=== PATIENT | female | born 1945 | race American Indian/Alaskan Native ===

== ENCOUNTER 2017-04-26 10:14 | Outpatient (CLI) | payer MEDICARE ==
--- NOTE | 2017-04-27 08:43 | Mammography Report ---
BONE DEXA:04/26/17 10:30:00 CLINICAL: Postmenopausal. No comparison. TECHNIQUE: Two site bone DEXA performed on an Hologic scanner. FINDINGS: The average BMD of the lumbar spine L1-L4 is 0.961g/cm squared with a T-score of -0.8 and a Z-score of +0.6. The average BMD of the left hip is 0.878g/cm squared with a T-score of -0.5 and a Z-score of 0.2. IMPRESSION: 1. WHO classification: Normal with average fracture risk based on lumbar spine measurements. 2. WHO classification: Osteopenia with increased fracture risk based on left hip measurements. 3. The FRAX 10 year fracture probability for a major osteoporotic fracture is 4.3%. 4. The FRAX 10 year fracture probability for hip fracture is 0.6%. Note: FRAX version 3.01. Fracture probability calculated for an untreated patient. Fracture probability may be lower if the patient has received treatment. RECOMMENDATION: Clinical correlation and routine screening. DEFINITIONS: BMD = Bone Mineral Density T-score = BMD related to mean peak bone mass of young adult (mean expressed in Standard Deviation) Z-score = Age matched BMD expressed in SD World Health Organization (WHO) Diagnostic Criteria Normal T-score > -1 SD Osteopenia T-score between -1 and -2.4 SD Osteoporosis T-score -2.5 SD or below NOTE: BMD is not the only risk factor for fracture; also consider factors such as the patient's age, risk of falling, previous osteoporotic fracture, family history of osteoporotic fractures, current smoker, and low body weight. All treatment decisions require clinical judgment and consideration of individual patient factors, including patient preferences, comorbidities, previous drug use and risk factors not captured in the FRAX model (e.g. frailty, falls, vitamin D deficiency, increased bone turnover, interval significant decline in BMD). Fracture probability is calculated for an untreated patient. Fracture probability may be lower if the patient has received treatment. Z-scores are not calculated if >80 years of age.
--- NOTE | 2017-04-27 16:11 | Mammography Report ---
BILATERAL DIGITAL SCREENING MAMMOGRAM with CAD: 04/26/17 10:14:00 CLINICAL: Routine screening. COMPARISON:04/11/16 and 12/10/14 FINDINGS: The breasts are heterogeneously dense, which may obscure small masses. No mass, architectural distortion or suspicious calcifications. IMPRESSION: No mammographic evidence of malignancy. BI-RADS CATEGORY: 1 - - Negative RECOMMENDATION: Routine mammographic screening in one year. COMMENT: Patient follow-up letters are generated by our [employer] application.
== END 2017-04-26 10:15 | disposition home or self-care (01) ==
LOC: MAMMO 10:14
PROVIDERS: ATTEND Internal Medicine
DX: Z12.31 Encounter for screening mammogram for malignant neoplasm of breast (principal); M85.88 Other specified disorders of bone density and structure, other site; Z78.0 Asymptomatic menopausal state
CPT/HCPCS: 77080; G0202; 77067

== ENCOUNTER 2018-05-21 10:12 | Outpatient (CLI) | payer MEDICARE ==
--- NOTE | 2018-05-21 16:36 | Mammography Report ---
BILATERAL DIGITAL SCREENING MAMMOGRAM with CAD: 05/21/18 10:12:00 CLINICAL: Routine screening. COMPARISON:04/26/17 FINDINGS: The breasts are heterogeneously dense, which may obscure small masses. Left inner parenchymal asymmetry requires additional imaging.No architectural distortion or suspicious calcifications.The right breast is negative. IMPRESSION: Left asymmetry requiring further workup. BI-RADS CATEGORY: 0 -- Additional Imaging Evaluation Required RECOMMENDATION: Recall for left LM , rolled CC, and spot compression CC views and left breast ultrasound if needed. ACR BI-RADS MAMMOGRAPHIC CODES: 0 = Needs additional imaging evaluation; 1 = Negative; 2 = Benign; 3 = Probably benign; 4 = Suspicious; 5 = Malignant; 6 = Known biopsy-proven malignancy COMMENT: 1. Dense breast tissue, i.e., adenosis, fibrocystic changes, etc., may obscure an underlying neoplasm. 2. Approximately 10% of cancers are not detected with mammography. 3. A negative mammography report should not delay biopsy if a clinically suspicious mass is present. COMMENT: Patient follow-up letters are generated via our [employer] application.
== END 2018-05-21 10:13 | disposition home or self-care (01) ==
LOC: MAMMO 10:12
PROVIDERS: ATTEND Internal Medicine
DX: Z12.31 Encounter for screening mammogram for malignant neoplasm of breast (principal)
CPT/HCPCS: 77067

== ENCOUNTER 2018-07-12 10:56 | Outpatient (CLI) | payer MEDICARE ==
--- NOTE | 2018-07-12 12:15 | Mammography Report ---
LEFT DIGITAL DIAGNOSTIC MAMMOGRAM : 07/12/18 10:56:00 CLINICAL: Recalled for asymmetry. COMPARISON:05/21/18 screening FINDINGS: Additional mammographic views were performed and are negative. IMPRESSION: Negative Mammogram. BI-RADS CATEGORY: 1 -- Negative RECOMMENDATION: Routine mammographic screening in one year. ACR BI-RADS MAMMOGRAPHIC CODES: 0 = Needs additional imaging evaluation; 1 = Negative; 2 = Benign; 3 = Probably benign; 4 = Suspicious; 5 = Malignant; 6 = Known biopsy-proven malignancy COMMENT: 1. Dense breast tissue, i.e., adenosis, fibrocystic changes, etc., may obscure an underlying neoplasm. 2. Approximately 10% of cancers are not detected with mammography. 3. A negative mammography report should not delay biopsy if a clinically suspicious mass is present. COMMENT: Patient follow-up letters are generated via our [employer] application.
== END 2018-07-12 10:57 | disposition home or self-care (01) ==
LOC: MAMMO 10:56
PROVIDERS: ATTEND Physician Assistant Medical
DX: R92.2 Inconclusive mammogram (principal)

== ENCOUNTER 2022-05-03 03:28 | Observation (INO) | payer MEDICARE ==
[2022-05-03 05:46] LABS: Basophils % (Auto) 0.7 % (0.0-1.8); Eosinophils # (Auto) 0.1 K/mm3 (0.0-0.4); Eosinophils % (Auto) 1.2 % (0.0-4.3); Hematocrit 39.8 % (30.3-42.9); Hemoglobin 13.3 gm/dl (10.1-14.3); Lymphocytes # (Auto) 1.2 K/mm3 (1.2-5.4); Lymphocytes % (Auto) 28.8 % (13.4-35.0); Mean Corpuscular HGB Conc 33 % (30-34); Mean Corpuscular Volume 96 fl (79-97); Monocytes # (Auto) 0.3 K/mm3 (0.0-0.8); Monocytes % (Auto) 7.5 % (0.0-7.3); Platelet Count 261 K/mm3 (140-440); Red Blood Count 4.14 M/mm3 (3.65-5.03); Red Cell Distribution Width 12.6 % (13.2-15.2)
[2022-05-03 05:55] LABS: INR 0.86 (0.87-1.13); Partial Thromboplastin Time 24.8 Sec. (24.2-36.6)
[2022-05-03 06:14] LABS: Alanine Aminotransferase 9 units/L (7-56); Albumin 4.2 g/dL (3.9-5); Blood Urea Nitrogen 5 mg/dL (7-17); Calcium 9.4 mg/dL (8.4-10.2); Hemolysis Index 33
[2022-05-03 06:16] LABS: BUN/Creatinine Ratio 8
[2022-05-03] MEDS ORDERED: THIAMINE 100 MG, FOLIC ACID 1 MG, MULTIPLE VITAMIN INJ, ADULT 10 ML in SODIUM CHLORIDE ... IV ONE (06:33)
--- NOTE | 2022-05-03 06:38 | Emergency Department Report ---
ED Syncope HPI - General Chief Complaint: Syncope Stated Complaint: SYNCOPE/ANXIETY Time Seen by Provider: 05/03/22 06:09 Source: patient, family Exam Limitations: no limitations - History of Present Illness Initial Comments: 76-year-old female past medical history of hypertension, smoker, elevated cholesterol, hypoglycemic episode presents to the hospital complaining of syncop al episode today. Patient admits to drinking 1 bottle of Heineken and half a glass of wine. She was watching TV and felt lightheaded. She entered her granddaughters room, became diaphoretic, and slid down the bed and passed out on the floor for several seconds. She woke up speaking slowly and then "spoke another language" therefore EMS was notified. Patient denies any preceding or current headache, chest pain, nausea, vomiting, abdominal pain focal weakness, or numbness. Patient reports decreased p.o. intake. She denies history of alcohol withdrawal tremors or seizures but does drink alcohol daily. patient has bruising to her left leg from unknown injury. Precipitating Factors: Positive: lightheadedness Context: sitting Loss of Consciousness: brief (seconds) Current Symptoms: back to normal - Related Data Allergies/Adverse Reactions: Allergies No Known Allergies Allergy (Verified 05/03/22 06:35) ED Review of Systems ROS: Stated complaint: SYNCOPE/ANXIETY Other details as noted in HPI Comment: All other systems reviewed and negative ED Physical Exam - General Limitations: Altered Mental Status - Other Other exam information: General: No acute distress Head: Atraumatic Eyes: normal appearance ENT: Moist mucous membranes Neck: Normal appearance, no midline tenderness Chest: Clear to auscultation bilaterally CV: Regular rate and rhythm Abdomen: Soft, normal bowel sounds, nontender, nondistended, no rebound or guarding Back: Normal inspection Extremity: Ecchymosis to left thigh and lower leg, full range of motion of bilateral upper and lower extremities without pain Neuro: Alert O x 3, no facial asymmetry, speech clear, no gross motor sensory deficit Psych: Appropriate behavior Skin: Ecchymosis noted to left thigh and lower leg ED Course Vital Signs 05/03/22 05/03/22 03:49 07:39 Temperature 97.8 F 98.0 F Pulse Rate 71 70 Respiratory 16 20 Rate Blood Pressure 141/78 127/67 [Right] O2 Sat by Pulse 99 100 Oximetry ED Medical Decision Making - Lab Data Result diagrams: 05/03/22 05:31 05/03/22 05:31 - EKG Data -: EKG Interpreted by [facility] EKG shows normal: sinus rhythm, ST-T waves (Biphasic anterior T wave, inferior T wave inversion) Rate: normal (75) - EKG Data When compared to previous EKG there are: previous EKG unavailable - Radiology Data Radiology results: report reviewed XR chest 1V ap INDICATION / CLINICAL INFORMATION: syncope. COMPARISON: None available. FINDINGS: SUPPORT DEVICES: None. HEART /PULMONARY VASCULATURE: Heart is enlarged. No significant pulmonary vasculature congestion. LUNGS / PLEURA: Lungs are hyperexpanded but appear clear of focal infiltrate. No pneumothorax. ADDITIONAL FINDINGS: No significant additional findings. IMPRESSION: 1. No acute findings. CT HEAD WITHOUT CONTRAST INDICATION / CLINICAL INFORMATION: sycnope, etoh. TECHNIQUE: All CT scans at this location are performed using CT dose reduction for ALARA by means of automated exposure control. COMPARISON: None available. FINDINGS: CEREBRAL/CEREBELLAR PARENCHYMA: Mild white matter hypodensities likely representing microangiopathy. No acute territorial infarct. Mild generalized cerebral and cerebellar atrophy. HEMORRHAGE: No acute intra-axial hemorrhage or extra-axial fluid collection. MASS: No mass or mass effect. VENTRICULAR SYSTEM: Normal in size and morphology for the patient's age. ORBITS: Normal as visualized. SOFT TISSUES/SKULL: Small benign-appearing left frontal vertex scalp lesion that most likely represents an epidermal inclusion cyst (series 2, image 23) measuring 9 mm in diameter. PARANASAL SINUSES/MASTOID AIR CELLS: Normal as visualized. IMPRESSION: 1. No acute intracranial abnormality. CT CERVICAL SPINE WITHOUT CONTRAST INDICATION / CLINICAL INFORMATION: sycnope, etoh. TECHNIQUE: Axial CT images were obtained through the cervical spine. Sagittal and coronal reformatted images were produced. All CT scans at this location are performed using CT dose reduction for ALARA by means of automated exposure control. COMPARISON: None available. FINDINGS: VERTEBRAE/ALIGNMENT: Normal vertebral body height and alignment without acute fracture or posttraumatic subluxation. CRANIOCERVICAL JUNCTION:No significant abnormality. DISC SPACES/FACETS: Asymmetric multilevel hypertrophic facet arthropathy on the left. This results in trace anterolisthesis of C4 on C5 by 2 mm. Disc height loss and broad-based disc osteophyte complexes at C5-C6 and C6-C7, most severe at C6-C7. Advanced disc height loss is also present at C7- T1. Moderate bilateral neural foraminal stenosis at C6-C7 and on the right at C5-C6. SPINAL CANAL: No evidence for significant spinal stenosis within limitations of noncontrast CT technique. PARASPINAL SOFT TISSUES: No significant abnormality. LUNG APICES/ADDITIONAL FINDINGS: Mild biapical pleural scarring. IMPRESSION: 1. No fracture or other acute process. 2. Moderate lower cervical degenerative spondylosis, as detailed above, and mild grade 1 anterolisthesis of C4 on C5 secondary to severe left facet arthropathy. - Medical Decision Making 76-year-old female presents to the hospital syncopal episode. Positive EtOH intake reported.. Labs revealed mild elevation in alcohol level with elevated sodium and chloride to suggest dehydration. Given patient has bruising to leg I suspect frequent falls. CT head and cervical spine unremarkable. Chest x-ray unremarkable. EKG shows anterior lateral T wave inversions with a normal troponin. Patient denies chest pain or shortness of breath. Patient will be admitted to the hospital service. Dr. Rodriguez requests admission to Dr. Sarkar Critical Care Time: No Critical care attestation.: If time is entered above; I have spent that time in minutes in the direct care of this critically ill patient, excluding procedure time. ED Disposition Clinical Impression: Syncope, Daily consumption of alcohol, Abnormal EKG, Dehydration Disposition: ADMITTED INPATIENT Is pt being admited?: Yes Does the pt Need Aspirin: No Condition: Stable Instructions: Syncope (ED) Time of Disposition: 08:46
--- NOTE | 2022-05-03 07:02 | XRay Report ---
XR chest 1V ap INDICATION / CLINICAL INFORMATION: syncope. COMPARISON: None available. FINDINGS: SUPPORT DEVICES: None. HEART /PULMONARY VASCULATURE: Heart is enlarged. No significant pulmonary vasculature congestion. LUNGS / PLEURA: Lungs are hyperexpanded but appear clear of focal infiltrate. No pneumothorax. ADDITIONAL FINDINGS: No significant additional findings. IMPRESSION: 1. No acute findings. Signer Name: Toni Vang MD Signed: 05/03/2022 6:58 AM Workstation Name: [id number]
--- NOTE | 2022-05-03 08:33 | Cat Scan Report ---
CT HEAD WITHOUT CONTRAST INDICATION / CLINICAL INFORMATION: sycnope, etoh. TECHNIQUE: All CT scans at this location are performed using CT dose reduction for ALARA by means of automated exposure control. COMPARISON: None available. FINDINGS: CEREBRAL/CEREBELLAR PARENCHYMA: Mild white matter hypodensities likely representing microangiopathy. No acute territorial infarct. Mild generalized cerebral and cerebellar atrophy. HEMORRHAGE: No acute intra-axial hemorrhage or extra-axial fluid collection. MASS: No mass or mass effect. VENTRICULAR SYSTEM: Normal in size and morphology for the patient's age. ORBITS: Normal as visualized. SOFT TISSUES/SKULL: Small benign-appearing left frontal vertex scalp lesion that most likely represen ts an epidermal inclusion cyst (series 2, image 23) measuring 9 mm in diameter. PARANASAL SINUSES/MASTOID AIR CELLS: Normal as visualized. IMPRESSION: 1. No acute intracranial abnormality. Signer Name: Bernardo Cole MD Signed: 05/03/2022 8:29 AM Workstation Name: [email or web address]
--- NOTE | 2022-05-03 08:37 | Cat Scan Report ---
CT CERVICAL SPINE WITHOUT CONTRAST INDICATION / CLINICAL INFORMATION: symary, etoh. TECHNIQUE: Axial CT images were obtained through the cervical spine. Sagittal and coronal reformatted images were produced. All CT scans at this location are performed using CT dose reduction for ALARA by means of automated exposure control. COMPARISON: None available. FINDINGS: VERTEBRAE/ALIGNMENT: Normal vertebral body height and alignment without acute fracture or posttraumat ic subluxation. CRANIOCERVICAL JUNCTION:No significant abnormality. DISC SPACES/FACETS: Asymmetric multilevel hypertrophic facet arthropathy on the left. This results in trace anterolisthesis of C4 on C5 by 2 mm. Disc height loss and broad-based disc osteophyte complexe s at C5-C6 and C6-C7, most severe at C6-C7. Advanced disc height loss is also present at C7-T1. Moder ate bilateral neural foraminal stenosis at C6-C7 and on the right at C5-C6. SPINAL CANAL: No evidence for significant spinal stenosis within limitations of noncontrast CT techni que. PARASPINAL SOFT TISSUES: No significant abnormality. LUNG APICES/ADDITIONAL FINDINGS: Mild biapical pleural scarring. IMPRESSION: 1. No fracture or other acute process. 2. Moderate lower cervical degenerative spondylosis, as detailed above, and mild grade 1 anterolisthe sis of C4 on C5 secondary to severe left facet arthropathy. Signer Name: Bernardo Cole MD Signed: 05/03/2022 8:33 AM Workstation Name: [email or web address]
[2022-05-03] MEDS ORDERED: ACETAMINOPHEN 325 MG TAB PO PRN (08:47)
[2022-05-03] MEDS ORDERED: MORPHINE 2 MG/1 ML INJ IV PRN ×2 (08:47→11:00)
[2022-05-03] MEDS ORDERED: ONDANSETRON 4 MG/2 ML INJ IV PRN (08:47)
[2022-05-03] MEDS ORDERED: MORPHINE 4 MG/1 ML INJ IV PRN (10:48)
[2022-05-03] MEDS ORDERED: oxyCODONE /ACETAMINOPHEN 5-325MG TAB PO PRN (11:00)
--- NOTE | 2022-05-03 11:19 | Electrocardiograph Report ---
[facility] Test Date: 2022-05-03 Test Time: 06:17:15 Pat Name: ROBERT KAY Department: Room: A451 Gender: F Care Giver: AGUSTO : 1945 Requested By: DOTTY LIGHT Order Number: [id number] Reading MD: Macario Mendoza Measurements Intervals [place] Rate: 75 P: 38 TX: 174 QRS: -50 QRSD: 103 T: -38 QT: 431 QTc: 483 Interpretive Statements Sinus rhythm LAD, consider left anterior fascicular block Left ventricular hypertrophy Abnormal T, consider ischemia, diffuse leads No previous ECG available for comparison Electronically Signed On 05-03-2022 11:19:44 EDT by Macario Mendoza
[2022-05-03 11:33] LABS: Amphetamine Screen,Urine Negative; Benzodiazepines Screen,Urine Negative; Cannabinoid Screen,Urine Negative; Cocaine Screen,Urine Negative; Methadone Screen,Urine Negative; Opiate Screen,Urine Negative
--- NOTE | 2022-05-03 12:30 | History and Physical Report ---
History of Present Illness Date of examination: 05/03/22 Date of admission: 05/03/22 08:47 Chief complaint: Syncope History of present illness: Patient is a 76-year-old female past medical history of hypertension, tobacco dependence, hyperlipidemia, and episodes of hypoglycemia who presented to the ED after becoming diaphoretic and syncopized any at home with family. The patient was consuming alcohol with her family and afterwards she became diaphoretic upon walking into the room. The patient describes sitting on the bed and sliding off of it to the ground. Patient states that her family described her as "speaking another language" and being confused; this prompted her being transported to the ED. On presentation to the ED, the patient was found to be hemodynamically stable and saturating 100% on room air. Patient's labs were remarkable for hyponatremia with a sodium of 148. Patient had unremarkable troponin, chest x- ray, CT head without contrast, and CT cervical spine in the setting of ground- level fall. Patient is being admitted for syncope work-up. Past History Past Medical History: hypertension, hyperlipidemia (Tobacco dependence,), other (#Tobacco dependence#Tobacco/Smoking cessation counseling- Counseled patient about the importance of smoking cessation and the possible sequelae as a result of continued tobacco consumption. The patient expresses understanding. -Time: + 15 mins) Past Surgical History: No surgical history Social history: lives with family, full code Family history: no significant family history Medications and Allergies Allergies Allergy/AdvReac Type Severity Reaction Status Date / Time No Known Allergies Allergy Verified 05/03/22 06:35 Home Medications Medication Instructions Recorded Confirmed Last Taken Type Cyclobenzaprine 5 mg PO QHS PRN 05/03/22 05/03/22 2 Days Ago History ~05/01/22 5 Ergocalciferol (Vitamin D2) 1.25 mg PO 1XW 05/03/22 05/03/22 Unknown History Pantoprazole Sodium 1 tab PO DAILY 05/03/22 05/03/22 Unknown History Active Meds: Active Medications Acetaminophen (Acetaminophen 325 Mg Tab) 650 mg PO Q4H PRN PRN Reason: Pain MILD(1-3)/Fever >100.5/TRIVEDI Morphine Sulfate (Morphine 2 Mg/1 Ml Inj) 2 mg IV Q4H PRN PRN Reason: Pain , Severe (7-10) Ondansetron HCl (Ondansetron 4 Mg/2 Ml Inj) 4 mg IV Q8H PRN PRN Reason: Nausea And Vomiting Oxycodone/Acetaminophen (Oxycodone /Acetaminophen 5-325mg Tab) 1 tab PO Q6H PRN PRN Reason: Pain, Moderate (4-6) Sodium Chloride (Sodium Chloride 0.9% 10 Ml Flush Syringe) 10 ml IV BID RUEL Sodium Chloride (Sodium Chloride 0.9% 10 Ml Flush Syringe) 10 ml IV PRN PRN PRN Reason: LINE FLUSH Review of Systems Constitutional: other (Syncope and diaphoresis) Exam - Constitutional Vitals: Temp Pulse Resp BP Pulse Ox 97.9 F 72 20 133/72 97 05/03/22 11:40 05/03/22 11:40 05/03/22 11:40 05/03/22 11:40 05/03/22 11:40 General appearance: Present: no acute distress, well-nourished, obese - EENT Eyes: Present: PERRL, EOM intact ENT: hearing intact, clear oral mucosa, dentition normal - Neck Neck: Present: supple, normal ROM - Respiratory Respiratory effort: normal Respiratory: bilateral: CTA - Cardiovascular Rhythm: regular Heart Sounds: Present: S1 & S2 - Extremities Extremities: no ischemia, pulses intact, pulses symmetrical, No edema, normal temperature, normal color Peripheral Pulses: within normal limits - Abdominal General gastrointestinal: Present: soft, non-tender, non-distended, normal bowel sounds Female genitourinary: Present: deferred - Rectal Rectal Exam: deferred - Integumentary Integumentary: Present: clear, warm, dry - Psychiatric Psychiatric: appropriate mood/affect, cooperative - Neurologic Neurologic: CNII-XII intact - Allied Health Allied health notes reviewed: nursing HEART Score - HEART Score Troponin: Troponin T < 0.010 ng/mL (0.00-0.029) 05/03/22 05:31 Results - Labs CBC & Chem 7: 05/03/22 05:31 08 05:31 Labs: Laboratory Last Values WBC 4.3 K/mm3 (4.5-11.0) L 05/03/22 05:31 RBC 4.14 M/mm3 (3.65-5.03) 05/03/22 05:31 Hgb 13.3 gm/dl (10.1-14.3) 05/03/22 05:31 Hct 39.8 % (30.3-42.9) 05/03/22 05:31 MCV 96 fl (79-97) 05/03/22 05:31 MCH 32 pg (28-32) 05/03/22 05:31 MCHC 33 % (30-34) 05/03/22 05:31 RDW 12.6 % (13.2-15.2) L 05/03/22 05:31 Plt Count 261 K/mm3 (140-440) 05/03/22 05:31 Lymph % (Auto) 28.8 % (13.4-35.0) 05/03/22 05:31 Wolfe % (Auto) 7.5 % (0.0-7.3) H 05/03/22 05:31 Eos % (Auto) 1.2 % (0.0-4.3) 05/03/22 05:31 Baso % (Auto) 0.7 % (0.0-1.8) 05/03/22 05:31 Lymph # (Auto) 1.2 K/mm3 (1.2-5.4) 05/03/22 05:31 Wolfe # (Auto) 0.3 K/mm3 (0.0-0.8) 05/03/22 05:31 Eos # (Auto) 0.1 K/mm3 (0.0-0.4) 05/03/22 05:31 Baso # (Auto) 0.0 K/mm3 (0.0-0.1) 05/03/22 05:31 Seg Neutrophils % 61.8 % (40.0-70.0) 05/03/22 05:31 Seg Neutrophils # 2.6 K/mm3 (1.8-7.7) 05/03/22 05:31 PT 12.9 Sec. (12.2-14.9) 05/03/22 05:31 INR 0.86 (0.87-1.13) L 05/03/22 05:31 APTT 24.8 Sec. (24.2-36.6) 05/03/22 05:31 Sodium 148 mmol/L (137-145) H 05/03/22 05:31 Potassium 4.3 mmol/L (3.6-5.0) 05/03/22 05:31 Chloride 109.0 mmol/L (98-107) H 05/03/22 05:31 Carbon Dioxide 24 mmol/L (22-30) 05/03/22 05:31 Anion Gap 19 mmol/L 05/03/22 05:31 BUN 5 mg/dL (7-17) L 05/03/22 05:31 Creatinine 0.6 mg/dL (0.6-1.2) 05/03/22 05:31 Estimated GFR > 60 ml/min 05/03/22 05:31 BUN/Creatinine Ratio 8 % 05/03/22 05:31 Glucose 117 mg/dL (65-100) H 05/03/22 05:31 Calcium 9.4 mg/dL (8.4-10.2) 05/03/22 05:31 Total Bilirubin 0.30 mg/dL (0.1-1.2) 05/03/22 05:31 AST 14 units/L (5-40) 05/03/22 05:31 ALT 9 units/L (7-56) 05/03/22 05:31 Alkaline Phosphatase 48 units/L (35-129) 05/03/22 05:31 Troponin T < 0.010 ng/mL (0.00-0.029) 05/03/22 05:31 Total Protein 6.5 g/dL (6.3-8.2) 05/03/22 05:31 Albumin 4.2 g/dL (3.9-5) 05/03/22 05:31 Albumin/Globulin Ratio 1.8 % 05/03/22 05:31 Urine Opiates Screen Negative 05/03/22 11:03 Urine Methadone Screen Negative 05/03/22 11:03 Ur Barbiturates Screen Negative 05/03/22 11:03 Ur Phencyclidine Scrn Negative 05/03/22 11:03 Ur Amphetamines Screen Negative 05/03/22 11:03 U Benzodiazepines Scrn Negative 05/03/22 11:03 Urine Cocaine Screen Negative 05/03/22 11:03 U Marijuana (THC) Screen Negative 05/03/22 11:03 Drugs of Abuse Note Disclamer 05/03/22 11:03 Plasma/Serum Alcohol 0.03 % (0-0.07) 05/03/22 05:31 Assessment and Plan Assessment and plan: #Acute toxic encephalopathy Possibly secondary to recent alcohol consumption prior to syncope. Unremarkable CT head noncontrast. Low clinical suspicion for infection and current labs are unremarkable. Unremarkable urinalysis. Continue to monitor. #Syncope Currently hemodynamically stable. EKG revealing LVH and possible left anterior fascicular block. Unremarkable chest x-ray. TTE to evaluate cardiac function. Performed orthostatic blood pressures. Continue remote telemetry. Continue to monitor #Hyponatremia Sodium 148 Encourage increased p.o. intake. No intervention necessary at this time. Continue to monitor with repeat BMP tomorrow morning. #Hypertension #Hyperlipidemia - home medications: Unknown - current medications: Currently holding as the patient is normotensive and to avoid hypotension. - SBP goal <160 and DBP goal <90 while inpatient - continue to monitor #Ground-level fall Unremarkable CT head without contrast and CT cervical spine. Continue analgesics as needed. #Tobacco dependence #Tobacco/Smoking cessation counseling - Counseled patient about the importance of smoking cessation and the possible sequelae as a result of continued tobacco consumption. The patient expresses understanding. -Time: +15 mins #Advanced care planning -Disease education conducted, care plan discussed, diagnoses discussed, prognosi s discussed, and patient acknowledges understanding with care plan -Time: +30 min Advance Directives: No VTE prophylaxis?: Chemical Plan of care discussed with patient/family: Yes
[2022-05-03 12:38] LABS: Bilirubin,Urine Negative (Negative); Color,Urine Straw (Yellow)
[2022-05-03 12:39] LABS: Blood,Urine Negative (Negative); Protein,Urine <15 mg/dL mg/dL (Negative)
[2022-05-03 15:07] LABS: RBC,Urine < 1.0 /HPF (0.0-6.0); WBC,Urine < 1.0 /HPF (0.0-6.0)
[2022-05-04 04:40] LABS: Blood Urea Nitrogen 8 mg/dL (7-17); Calcium 8.7 mg/dL (8.4-10.2); Hemolysis Index 7
[2022-05-04 04:42] LABS: BUN/Creatinine Ratio 16
--- NOTE | 2022-05-04 07:44 | Discharge Summary ---
Providers - Providers Date of Admission: 05/03/22 08:47 Date of discharge: 05/04/22 Attending physician: RADHA VELOZ MD 05/03/22 13:51 Consult to Dietitian/Nutrition [CONS] Routine Physician Instructions: Reason For Exam: Reason for Consult: Malnutrition Primary care physician: CNC MANAGER Hospitalization Reason for admission: Acute toxic encephalopathy, syncope Condition: Stable Pertinent studies: Reviewed. Procedures: None. Hospital course: Patient is a 76-year-old female past medical history of hypertension, tobacco dependence, hyperlipidemia, and episodes of hypoglycemia who presented to the ED after becoming diaphoretic and syncopized any at home with family. The patient was consuming alcohol with her family and afterwards she became diaphoretic upon walking into the room. The patient describes sitting on the bed and sliding off of it to the ground. Patient states that her family described her as "speaking another language" and being confused; this prompted her being transported to the ED. On presentation to the ED, the patient was found to be hemodynamically stable and saturating 100% on room air. Patient's labs were remarkable for hyponatremia with a sodium of 148. Patient had unremarkable troponin, chest x-ray, CT head without contrast, and CT cervical spine in the setting of ground-level fall. Patient is being admitted for syncope work-up. Patient underwent TTE that was unremarkable. Patient was counseled about decreasing her daily alcohol consumption. Patient is medically clear for discharge, patient expressed understanding. Disposition: 01 HOME / SELF CARE / HOMELESS Final Discharge Diagnosis (Prints w/discharge instructions): Syncope, acute toxic encephalopathy, hyponatremia, hypertension, hyperlipidemia, ground-level fall, tobacco dependence. Time spent for discharge: 45 min Core Measure Documentation - Palliative Care Palliative Care/ Comfort Measures: Not Applicable - Core Measures Any of the following diagnoses?: none Exam - Constitutional Vitals: Temp Pulse Resp BP Pulse Ox 97.9 F 59 L 16 147/67 100 05/04/22 04:24 05/04/22 05:03 05/04/22 04:24 05/04/22 04:24 05/04/22 04:24 General appearance: Present: no acute distress, well-nourished, obese - EENT Eyes: Present: PERRL, EOM intact ENT: hearing intact, clear oral mucosa - Neck Neck: Present: supple, normal ROM - Respiratory Respiratory effort: normal Respiratory: bilateral: CTA - Cardiovascular Rhythm: regular Heart Sounds: Present: S1 & S2 - Extremities Extremities: no ischemia, pulses intact, pulses symmetrical, No edema, normal temperature, normal color Peripheral Pulses: within normal limits - Abdominal General gastrointestinal: Present: soft, non-tender, non-distended, normal bowel sounds Female genitourinary: Present: deferred - Rectal Rectal Exam: deferred - Integumentary Integumentary: Present: clear, warm, dry - Musculoskeletal Musculoskeletal: strength equal bilaterally - Psychiatric Psychiatric: appropriate mood/affect, intact judgment & insight, memory intact, cooperative - Neurologic Neurologic: CNII-XII intact, moves all extremities - Allied Health Allied health notes reviewed: nursing Plan Activity: advance as tolerated Diet: low salt Additional Instructions: Patient is a 76-year-old female past medical history of hypertension, tobacco dependence, hyperlipidemia, and episodes of hypoglycemia who presented to the ED after becoming diaphoretic and syncopized any at home with family. The patient was consuming alcohol with her family and afterwards she became diaphoretic upon walking into the room. The patient describes sitting on the bed and sliding off of it to the ground. Patient states that her family described her as "speaking another language" and being confused; this prompted her being transported to the ED. On presentation to the ED, the patient was found to be hemodynamically stable and saturating 100% on room air. Patient's labs were remarkable for hyponatremia with a sodium of 148. Patient had unremarkable troponin, chest x-ray, CT head without contrast, and CT cervical spine in the setting of ground-level fall. Patient is being admitted for syncope work-up. Patient underwent TTE that was unremarkable. Patient was counseled about decreasing her daily alcohol consumption. Patient is medically clear for discharge, patient expressed understanding. Care Plan Goals: Patient is medically clear for discharge. Assessment: Patient is a 76-year-old female past medical history of hypertension, tobacco dependence, hyperlipidemia, and episodes of hypoglycemia who presented to the ED after becoming diaphoretic and syncopized any at home with family. The patient was consuming alcohol with her family and afterwards she became diaphoretic upon walking into the room. The patient describes sitting on the bed and sliding off of it to the ground. Patient states that her family described her as "speaking another language" and being confused; this prompted her being transported to the ED. On presentation to the ED, the patient was found to be hemodynamically stable and saturating 100% on room air. Patient's labs were remarkable for hyponatremia with a sodium of 148. Patient had unremarkable troponin, chest x-ray, CT head without contrast, and CT cervical spine in the setting of ground-level fall. Patient is being admitted for syncope work-up. Patient underwent TTE that was unremarkable. Patient was counseled about decreasing her daily alcohol consumption. Patient is medically clear for discharge, patient expressed understanding. Follow up with: PRIMARY CARE, [Primary Care Provider] - 7 Days
[2022-05-04] MEDS ORDERED: POTASSIUM CHLORIDE ER 20 MEQ TAB PO SCH (08:00)
[2022-05-04 08:42] VITALS: BP 133/70
== END 2022-05-04 11:30 | disposition home or self-care (01) ==
LOC: ED 03:28 → 4A 08:47 → INTOOBSV 08:47 → 4A 12:17
PROVIDERS: ADMIT Student in an Organized Health Care Education/Training Program; ATTEND Student in an Organized Health Care Education/Training Program
DX: G92.8 Other toxic encephalopathy (principal); R55 Syncope and collapse; E87.1 Hypo-osmolality and hyponatremia; I10 Essential (primary) hypertension; E78.5 Hyperlipidemia, unspecified; R94.31 Abnormal electrocardiogram [ECG] [EKG]; E86.0 Dehydration; F17.210 Nicotine dependence, cigarettes, uncomplicated; Z79.899 Other long term (current) drug therapy; Z98.890 Other specified postprocedural states; Z91.81 History of falling
CPT/HCPCS: 36415; 70450; 71045; 72125; 80048; 80053; 80307; 81001; 84484; 85025; 85610; 85730; 93005; 96365; 96366; 99285; 99407; C8929; G0378; J3411; J3490; J7030; 80320; 93306; G0480

== ENCOUNTER 2022-06-09 16:37 | Inpatient (IN) | payer MEDICARE ==
[2022-06-09 18:05] LABS: Basophils % (Auto) 0.4 % (0.0-1.8); Hematocrit 49.9 % (30.3-42.9); Hemoglobin 16.3 gm/dl (10.1-14.3); Lymphocytes # (Auto) 0.8 K/mm3 (1.2-5.4); Lymphocytes % (Auto) 9.7 % (13.4-35.0); Mean Corpuscular HGB Conc 33 % (30-34); Mean Corpuscular Volume 94 fl (79-97); Monocytes # (Auto) 0.5 K/mm3 (0.0-0.8); Monocytes % (Auto) 5.8 % (0.0-7.3); Platelet Count 338 K/mm3 (140-440); Red Blood Count 5.29 M/mm3 (3.65-5.03); Red Cell Distribution Width 12.6 % (13.2-15.2)
[2022-06-09] MEDS ORDERED: SODIUM CHLORIDE 0.9% 1000 ML 1,000 ML IV ONE (18:17)
[2022-06-09] MEDS ORDERED: MORPHINE 4 MG/1 ML INJ IV ONE (18:17)
[2022-06-09] MEDS ORDERED: ONDANSETRON 4 MG/2 ML INJ IV ONE (18:17)
[2022-06-09 18:22] LABS: Alanine Aminotransferase 10 units/L (7-56); Albumin 4.7 g/dL (3.9-5); BUN/Creatinine Ratio 7; Blood Urea Nitrogen 6 mg/dL (7-17); Calcium 10.5 mg/dL (8.4-10.2); Hemolysis Index 5
--- NOTE | 2022-06-09 18:43 | Emergency Department Report ---
ED Abdominal Pain HPI - General Chief Complaint: Abdominal Pain Stated Complaint: ABD PAIN Time Seen by Provider: 06/09/22 18:13 Source: patient, EMS Mode of arrival: Stretcher Limitations: No Limitations - History of Present Illness Initial Comments: Patient is a 76-year-old female brought in by family for evaluation of cute onset aching periumbilical/lower abdominal pain beginning this morning. The pain is nonradiating. She reports associated nausea and vomiting. There are no modifying factors. She has remote history of appendectomy. Denies fever or chills. Severity scale (0 -10): 8 - Related Data Home Medications Medication Instructions Recorded Confirmed Last Taken Pantoprazole Sodium 40 mg PO DAILY 05/03/22 06/14/22 Unknown Ergocalciferol [Vitamin D2] 50,000 units PO QWEEK 06/14/22 06/14/22 06/04/22 NIFEdipine XL [Procardia Xl] 30 mg PO QDAY 06/14/22 06/14/22 06/08/22 Previous Rx's Medication Instructions Recorded Last Taken Type Magnesium Oxide [Mag-Ox] 400 mg PO QDAY #7 06/15/22 Unknown Rx Potassium Chloride 10 meq PO DAILY #7 06/15/22 Unknown Rx Allergies Allergy/AdvReac Type Severity Reaction Status Date / Time No Known Allergies Allergy Verified 06/14/22 14:43 ED Review of Systems ROS: Stated complaint: ABD PAIN Other details as noted in HPI Constitutional: denies: chills, fever Respiratory: denies: cough, shortness of breath, wheezing Cardiovascular: denies: chest pain, palpitations Gastrointestinal: abdominal pain, nausea, vomiting Musculoskeletal: denies: back pain, joint swelling, arthralgia Skin: denies: rash, lesions Neurological: denies: headache, weakness, paresthesias Psychiatric: denies: anxiety, depression ED Past Medical Hx - Past Medical History Hx Hypertension: Yes Additional medical history: diverticulitis - Social History Smoking Status: Current Every Day Smoker - Medications Home Medications: Home Medications Medication Instructions Recorded Confirmed Last Taken Type Pantoprazole Sodium 40 mg PO DAILY 05/03/22 06/14/22 Unknown History Ergocalciferol [Vitamin D2] 50,000 units PO QWEEK 06/14/22 06/14/22 06/04/22 History NIFEdipine XL [Procardia Xl] 30 mg PO QDAY 06/14/22 06/14/22 06/08/22 History Magnesium Oxide [Mag-Ox] 400 mg PO QDAY #7 06/15/22 Unknown Rx Potassium Chloride 10 meq PO DAILY #7 06/15/22 Unknown Rx ED Physical Exam - General Limitations: No Limitations General appearance: alert, in distress - Head Head exam: Present: atraumatic, normocephalic - Respiratory Respiratory exam: Present: normal lung sounds bilaterally. Absent: respiratory distress - Cardiovascular Cardiovascular Exam: Present: regular rate, normal rhythm, normal heart sounds - GI/Abdominal GI/Abdominal exam: Present: soft, distended (Abdomen mildly distended), tenderness (Significant tenderness to the lower periumbilical region and lower abdomen) - Rectal Rectal exam: Present: deferred - Neurological Exam Neurological exam: Present: alert, oriented X3 - Psychiatric Psychiatric exam: Present: normal affect, normal mood - Skin Skin exam: Present: warm, dry, intact, normal color ED Course Vital Signs 06/09/22 06/09/22 06/09/22 16:47 18:21 19:01 Temperature 98.1 F Pulse Rate 105 H 93 H 84 Respiratory 18 43 H 22 Rate Blood Pressure 126/71 Blood Pressure 129/56 [Left] O2 Sat by Pulse 98 99 100 Oximetry 06/09/22 06/09/22 06/09/22 19:05 20:01 21:01 Temperature 98 F Pulse Rate 84 78 80 Respiratory 17 13 Rate Blood Pressure 134/71 142/66 Blood Pressure 143/81 [Left] O2 Sat by Pulse 99 98 96 Oximetry 06/09/22 06/09/22 06/09/22 22:01 22:20 23:00 Temperature Pulse Rate 98 H 95 H 92 H Respiratory 24 23 21 Rate Blood Pressure 143/77 147/76 Blood Pressure 130/74 [Left] O2 Sat by Pulse 94 95 94 Oximetry 06/10/22 06/10/22 00:01 01:01 Temperature Pulse Rate 94 H 95 H Respiratory 15 16 Rate Blood Pressure 130/74 133/76 Blood Pressure [Left] O2 Sat by Pulse 95 96 Oximetry ED Medical Decision Making - Lab Data Result diagrams: 06/12/22 07:46 06/15/22 04:39 - Medical Decision Making CT findings significant for likely moderate partial small bowel obstruction. There are also incidental findings of pancreatic ductal dilatation and to a lesser extent common bile duct dilatation. LFTs and lipase are unremarkable. I discussed the case with Dr. Rankin who will see the patient tomorrow. NG tube placement ordered. Will admit to hospitalist service. Critical care attestation.: If time is entered above; I have spent that time in minutes in the direct care of this critically ill patient, excluding procedure time. ED Disposition Clinical Impression: Partial small bowel obstruction Disposition: ADMITTED INPATIENT Is pt being admited?: Yes Condition: Stable
[2022-06-09 19:55] LABS: Color,Urine Colorless (Yellow)
[2022-06-09 19:56] LABS: RBC,Urine < 1.0 /HPF (0.0-6.0)
--- NOTE | 2022-06-09 20:17 | Cat Scan Report ---
CT ABDOMEN AND PELVIS WITH CONTRAST INDICATION / CLINICAL INFORMATION: Periumbilical/lower abdominal pain 65ml of [id number]. TECHNIQUE: Axial CT images were obtained through the abdomen and pelvis after [address] scans at this location are performed using CT dose reduction for ALARA by means of automated exposur e control. COMPARISON: None available. FINDINGS: LOWER CHEST: No significant abnormality. LIVER: Hypodensity involving the superior anterior right hepatic lobe measuring 2.4 cm, somewhat angu lar. GALLBLADDER: No significant abnormality. BILE DUCTS: Diffuse pancreatic ductal dilation with less pronounced CBD dilation. PANCREAS: Extensive pancreatic head calcifications. No surrounding inflammatory change. SPLEEN: No significant abnormality. ADRENALS: No significant abnormality. RIGHT KIDNEY / URETER: No significant abnormality. LEFT KIDNEY / URETER: No significant abnormality. STOMACH / SMALL BOWEL: Multiple pathologically dilated loops of small bowel, maximum caliber 4-5 cm. Distal small bowel is decompressed. Mesenteric injection. Distal esophageal thickening with fluid. COLON: Extensive diverticulosis. No acute inflammatory change. APPENDIX: Not well visualized or evaluated. PERITONEUM: Small volume, favored reactive. No free air. No fluid collection. LYMPH NODES: No significant adenopathy. AORTA / ARTERIES: No significant abnormality. IVC / VEINS: No significant abnormality. URINARY BLADDER: No significant abnormality. REPRODUCTIVE ORGANS: Uterus surgically absent. ADDITIONAL FINDINGS: None. SKELETAL SYSTEM: No significant abnormality. IMPRESSION: 1. Imaging features most consistent with at least a moderate grade partial small bowel obstruction, l ikely mechanical in nature. Associated mesenteric injection with small volume free fluid, likely reac tive. Surgical consultation recommended. 2. Diffuse pancreatic, and to a lesser degree, common bile duct dilation and the setting of features of chronic pancreatitis. No acute inflammatory changes are demonstrated. While no discrete ductal bel ling defect is demonstrated, follow-up routine MRCP is recommended to complete the evaluation. 3. Angular low-attenuation lesion anterior aspect right hepatic lobe which may reflect focal fat or a complicated cystic lesion. Attention at recommended forthcoming MRCP advised. 4. Features supporting reflux esophagitis. Signer Name: Ciro Metzger MD Signed: 06/09/2022 8:13 PM Workstation Name: [email or web address]
--- NOTE | 2022-06-09 21:59 | XRay Report ---
ABDOMEN 1 VIEW 06/09/2022 8:41 PM INDICATION / CLINICAL INFORMATION: NGT placement verification. COMPARISON: None available. FINDINGS: TUBES / LINES: NG tube tip and sidehole project over the stomach. BOWEL GAS PATTERN: Multiple dilated loops of small bowel above 3 cm most concerning for least partial obstruction. FREE AIR / EXTRALUMINAL GAS: None. ADDITIONAL FINDINGS: No significant additional findings. IMPRESSION: 1. NG tube tip and sidehole project over the stomach. 2. Abnormal bowel gas pattern. Signer Name: Ciro Metzger MD Signed: 06/09/2022 9:55 PM Workstation Name: [email or web address]
[2022-06-09] MEDS ORDERED: MORPHINE 4 MG/1 ML INJ IV PRN (22:09)
[2022-06-09] MEDS ORDERED: MAGNESIUM HYDROXIDE (MOM) ORAL LIQD UDC PO PRN (22:09)
[2022-06-09] MEDS ORDERED: ACETAMINOPHEN 325 MG TAB PO PRN (22:09)
[2022-06-09] MEDS ORDERED: ONDANSETRON 4 MG/2 ML INJ IV PRN (22:09)
--- NOTE | 2022-06-09 22:21 | History and Physical Report ---
History of Present Illness Date of examination: 06/09/22 Date of admission: 06/09/2022 Chief complaint: Abdominal Pain History of present illness: 76-year-old -Russian female with significant history of diverticulitis and appendectomy in the past presenting to the emergency room today complaining of sudden onset of abdominal pain. Abdominal pain was central started earlier this morning and is more in the periumbilical region and also in the lower abdomen. He has had associated nausea and vomiting but denies any diarrhea. There has been no known relieving or exacerbating factor. She denies any fever or chills, no chest pain or shortness of breath, no headache or dizziness and no diaphoresis. Patient denies any sick contacts and no recent travel. Work-up in the emergency room today, labs were unremarkable. CT of the abdomen and pelvis shows findings consistent with moderate grade partial small bowel obstruction. General surgeon on-call has been notified and consulted by the ER physician. Patient has had NG tube placed. Past History Past Medical History: hypertension, other (H/O Diverticulitis) Past Surgical History: appendectomy Social history: smoking (Current daily smoker) Family history: no significant family history Medications and Allergies Allergies Allergy/AdvReac Type Severity Reaction Status Date / Time No Known Allergies Allergy Verified 05/03/22 06:35 Home Medications Medication Instructions Recorded Confirmed Last Taken Type Cyclobenzaprine 5 mg PO QHS PRN 05/03/22 05/03/22 2 Days Ago History ~05/01/22 5 Ergocalciferol (Vitamin D2) 1.25 mg PO 1XW 05/03/22 05/03/22 Unknown History Pantoprazole Sodium 1 tab PO DAILY 05/03/22 05/03/22 Unknown History Active Meds: Active Medications Acetaminophen (Acetaminophen 325 Mg Tab) 650 mg PO Q4H PRN PRN Reason: Pain MILD(1-3)/Fever >100.5/TRIVEDI Magnesium Hydroxide (Magnesium Hydroxide (Mom) Oral Liqd Udc) 30 ml PO Q4H PRN PRN Reason: Constipation Morphine Sulfate (Morphine 2 Mg/1 Ml Inj) 2 mg IV Q4H PRN PRN Reason: Pain, Moderate (4-6) Morphine Sulfate (Morphine 4 Mg/1 Ml Inj) 4 mg IV Q4H PRN PRN Reason: Pain , Severe (7-10) Ondansetron HCl (Ondansetron 4 Mg/2 Ml Inj) 4 mg IV Q8H PRN PRN Reason: Nausea And Vomiting Sodium Chloride (Sodium Chloride 0.9% 10 Ml Flush Syringe) 10 ml IV BID RUEL Sodium Chloride (Sodium Chloride 0.9% 10 Ml Flush Syringe) 10 ml IV PRN PRN PRN Reason: LINE FLUSH Review of Systems Constitutional: no fever, no chills Ears, nose, mouth and throat: no nasal congestion, no sore throat Cardiovascular: no chest pain, no palpitations Respiratory: no cough, no shortness of breath Gastrointestinal: abdominal pain, nausea, vomiting, no diarrhea, no hematochezia Genitourinary Female: no flank pain, no dysuria, no urgency, no hematuria Musculoskeletal: no neck pain, no low back pain Integumentary: no rash, no pruritis Neurological: no headaches, no confusion Psychiatric: no anxiety, no depression Endocrine: no polyphagia, no polydipsia, no polyuria, no nocturia Exam - Constitutional Vitals: Temp Pulse Resp BP Pulse Ox 98 F 80 13 142/66 96 06/09/22 19:05 06/09/22 21:01 06/09/22 20:01 06/09/22 21:01 06/09/22 21:01 General appearance: Present: no acute distress, well-nourished - EENT Eyes: Present: PERRL, EOM intact. Absent: scleral icterus ENT: hearing intact, clear oral mucosa, dentition normal - Neck Neck: Present: supple, normal ROM - Respiratory Respiratory effort: normal Respiratory: bilateral: CTA - Cardiovascular Rhythm: regular Heart Sounds: Present: S1 & S2. Absent: gallop, systolic murmur, diastolic murmur, rub, click - Extremities Extremities: no ischemia, pulses intact, pulses symmetrical, No edema, normal temperature, normal color, Full ROM Peripheral Pulses: within normal limits - Abdominal General gastrointestinal: Present: soft, tender (Left lower quadrant with minimal guarding, no rebound tenderness.), non-distended, normal bowel sounds. Absent: mass - Integumentary Integumentary: Present: clear, warm, dry, normal turgor. Absent: rash - Musculoskeletal Musculoskeletal: strength equal bilaterally - Psychiatric Psychiatric: appropriate mood/affect, intact judgment & insight, memory intact, cooperative - Neurologic Neurologic: CNII-XII intact, no focal deficits, moves all extremities Results - Labs CBC & Chem 7: 06/09/22 17:23 06/09/22 17:23 Labs: Abnormal lab results 06/09/22 06/09/22 06/09/22 Range/Units 17:23 17:23 19:46 RBC 5.29 H (3.65-5.03) M/mm3 Hgb 16.3 H (10.1-14.3) gm/dl Hct 49.9 H (30.3-42.9) % RDW 12.6 L (13.2-15.2) % Lymph % (Auto) 9.7 L (13.4-35.0) % Lymph # (Auto) 0.8 L (1.2-5.4) K/mm3 Seg Neutrophils % 84.1 H (40.0-70.0) % BUN 6 L (7-17) mg/dL Glucose 146 H (65-100) mg/dL Calcium 10.5 H (8.4-10.2) mg/dL Specific Saline (Man) 1.000 L (1.003-1.030) Assessment and Plan Assessment: 1. Abdominal pain-secondary to partial small bowel obstruction Plan: 1. Patient admitted and placed on NG tube. 2. Started on IV fluid and IV analgesic medication. 3. General surgeon has been consulted for further evaluation and recommendations. DVT prophylaxis: Sequential compression device. CODE STATUS: Full code
[2022-06-10 07:10] LABS: Blood Urea Nitrogen 6 mg/dL (7-17); Hemolysis Index 9
[2022-06-10 07:52] LABS: BUN/Creatinine Ratio 10
--- NOTE | 2022-06-10 08:56 | Consultation ---
History of Present Illness Consult date: 06/10/22 Reason for consult: abdominal pain - History of present illness History of present illness: 76-year-old -[place] female with significant history of diverticulitis, hysterectomy and appendectomy in the past presenting to the emergency room today complaining of sudden onset of abdominal pain. Abdominal pain was central started earlier this morning and is more in the periumbilical region and also in the lower abdomen. He has had associated nausea and vomiting but denies any diarrhea. There has been no known relieving or exacerbating factor. She denies any fever or chills, no chest pain or shortness of breath, no headache or dizziness and no diaphoresis. Work-up in the emergency room today, labs were unremarkable. CT of the abdomen and pelvis shows findings consistent with moderate grade partial small bowel obstruction. Patient has had NG tube placed. Past History Past Medical History: hypertension, other (H/O Diverticulitis) Past Surgical History: appendectomy Social history: smoking (Current daily smoker) Family history: no significant family history Medications and Allergies Allergies Allergy/AdvReac Type Severity Reaction Status Date / Time No Known Allergies Allergy Verified 05/03/22 06:35 Home Medications Medication Instructions Recorded Confirmed Last Taken Type Cyclobenzaprine 5 mg PO QHS PRN 05/03/22 05/03/22 2 Days Ago History ~05/01/22 5 Ergocalciferol (Vitamin D2) 1.25 mg PO 1XW 05/03/22 05/03/22 Unknown History Pantoprazole Sodium 1 tab PO DAILY 05/03/22 05/03/22 Unknown History Active Meds: Active Medications Acetaminophen (Acetaminophen 325 Mg Tab) 650 mg PO Q4H PRN PRN Reason: Pain MILD(1-3)/Fever >100.5/TRIVDEI Magnesium Hydroxide (Magnesium Hydroxide (Mom) Oral Liqd Udc) 30 ml PO Q4H PRN PRN Reason: Constipation Morphine Sulfate (Morphine 2 Mg/1 Ml Inj) 2 mg IV Q4H PRN PRN Reason: Pain, Moderate (4-6) Morphine Sulfate (Morphine 4 Mg/1 Ml Inj) 4 mg IV Q4H PRN PRN Reason: Pain , Severe (7-10) Ondansetron HCl (Ondansetron 4 Mg/2 Ml Inj) 4 mg IV Q8H PRN PRN Reason: Nausea And Vomiting Sodium Chloride (Sodium Chloride 0.9% 10 Ml Flush Syringe) 10 ml IV BID RUEL Sodium Chloride (Sodium Chloride 0.9% 10 Ml Flush Syringe) 10 ml IV PRN PRN PRN Reason: LINE FLUSH Exam Vital Signs Temp Pulse Resp BP Pulse Ox 98.1 F 105 H 18 129/56 98 06/09/22 16:47 06/09/22 16:47 06/09/22 16:47 06/09/22 16:47 06/09/22 16:47 - General physical appearance Positive: well developed, no distress - Eyes Positive: PERRL - Neck Positive: no masses, no bruits, trachea midline - Respiratory Positive: normal expansion - Cardiovascular Rhythm: regular - Extremities Extremities: no ischemia, No edema - Abdomen Abdomen: Present: soft, tender. Absent: distended, masses, rebound, guarding, rigid - Integumentary no rash - Neurologic Neurologic: alert and oriented to time, place and person, motor strength and sensation are grossly intact, CN II-XII intact Results - Labs 06/09/22 17:23 06/10/22 05:26 Abnormal lab results 06/09/22 06/09/22 06/09/22 Range/Units 17:23 17:23 19:46 RBC 5.29 H (3.65-5.03) M/mm3 Hgb 16.3 H (10.1-14.3) gm/dl Hct 49.9 H (30.3-42.9) % RDW 12.6 L (13.2-15.2) % Lymph % (Auto) 9.7 L (13.4-35.0) % Lymph # (Auto) 0.8 L (1.2-5.4) K/mm3 Seg Neutrophils % 84.1 H (40.0-70.0) % Potassium (3.6-5.0) mmol/L BUN 6 L (7-17) mg/dL Glucose 146 H (65-100) mg/dL Calcium 10.5 H (8.4-10.2) mg/dL Specific [place] (Man) 1.000 L (1.003-1.030) 06/10/22 Range/Units 05:26 RBC (3.65-5.03) M/mm3 Hgb (10.1-14.3) gm/dl Hct (30.3-42.9) % RDW (13.2-15.2) % Lymph % (Auto) (13.4-35.0) % Lymph # (Auto) (1.2-5.4) K/mm3 Seg Neutrophils % (40.0-70.0) % Potassium 3.5 L (3.6-5.0) mmol/L BUN 6 L (7-17) mg/dL Glucose 150 H (65-100) mg/dL Calcium (8.4-10.2) mg/dL Specific [place] (Man) (1.003-1.030) Diabetes panel 06/09/22 06/10/22 Range/Units 17:23 05:26 Sodium 139 145 (137-145) mmol/L Potassium 3.7 3.5 L (3.6-5.0) mmol/L Chloride 98.5 105.4 (98-107) mmol/L Carbon Dioxide 22 27 (22-30) mmol/L BUN 6 L 6 L (7-17) mg/dL Creatinine 0.9 0.6 (0.6-1.2) mg/dL Glucose 146 H 150 H (65-100) mg/dL Calcium 10.5 H 9.0 (8.4-10.2) mg/dL AST 15 (5-40) units/L ALT 10 (7-56) units/L Alkaline Phosphatase 59 (35-129) units/L Total Protein 7.7 (6.3-8.2) g/dL Albumin 4.7 (3.9-5) g/dL Calcium panel 06/09/22 06/10/22 Range/Units 17:23 05:26 Calcium 10.5 H 9.0 (8.4-10.2) mg/dL Albumin 4.7 (3.9-5) g/dL Pituitary panel 06/09/22 06/10/22 Range/Units 17:23 05:26 Sodium 139 145 (137-145) mmol/L Potassium 3.7 3.5 L (3.6-5.0) mmol/L Chloride 98.5 105.4 (98-107) mmol/L Carbon Dioxide 22 27 (22-30) mmol/L BUN 6 L 6 L (7-17) mg/dL Creatinine 0.9 0.6 (0.6-1.2) mg/dL Glucose 146 H 150 H (65-100) mg/dL Calcium 10.5 H 9.0 (8.4-10.2) mg/dL Adrenal panel 06/09/22 06/10/22 Range/Units 17:23 05:26 Sodium 139 145 (137-145) mmol/L Potassium 3.7 3.5 L (3.6-5.0) mmol/L Chloride 98.5 105.4 (98-107) mmol/L Carbon Dioxide 22 27 (22-30) mmol/L BUN 6 L 6 L (7-17) mg/dL Creatinine 0.9 0.6 (0.6-1.2) mg/dL Glucose 146 H 150 H (65-100) mg/dL Calcium 10.5 H 9.0 (8.4-10.2) mg/dL Total Bilirubin 0.80 (0.1-1.2) mg/dL AST 15 (5-40) units/L ALT 10 (7-56) units/L Alkaline Phosphatase 59 (35-129) units/L Total Protein 7.7 (6.3-8.2) g/dL Albumin 4.7 (3.9-5) g/dL Assessment and Plan 76-year-old -[place] female with significant history of diverticulitis, hysterectomy and appendectomy in the past presenting to the emergency room today complaining of sudden onset of abdominal pain. Abdominal pain was central started earlier this morning and is more in the periumbilical region and also in the lower abdomen. He has had associated nausea and vomiting but denies any diarrhea. There has been no known relieving or exacerbating factor. She denies any fever or chills, no chest pain or shortness of breath, no headache or dizziness and no diaphoresis. Work-up in the emergency room today, labs were unremarkable. CT of the abdomen and pelvis shows findings consistent with moderate grade partial small bowel obstruction. Continue NG tube suction begin IV fluids normal saline serial abdominal observation.
--- NOTE | 2022-06-10 09:48 | Progress Note ---
Assessment and Plan Assessment and plan: 76-year-old -[place] female with past medical history of hypertension, tobacco dependence, hyperlipidemia, diverticulitis and appendectomy in the past presenting to the emergency room today complaining of sudden onset of abdominal pain. CT of the abdomen and pelvis shows findings consistent with moderate grade partial small bowel obstruction. Partial small bowel obstruction Hypertension Hyperlipidemia Tobacco dependence 06/10/2022. Patient currently with NG tube to low intermittent suction. Continue n.p.o. status. Continue serial KUB. General surgery following. IV hydralazine while patient currently NPO. History Interval history: No new issues overnight Hospitalist Physical - Constitutional Vitals: Temp Pulse Resp BP Pulse Ox 99.6 F 96 H 16 111/59 94 06/10/22 04:50 06/10/22 04:50 06/10/22 04:50 06/10/22 04:50 06/10/22 04:50 General appearance: Present: no acute distress, well-nourished - EENT Eyes: Present: PERRL, EOM intact ENT: hearing intact, clear oral mucosa, dentition normal - Neck Neck: Present: supple, normal ROM - Respiratory Respiratory effort: normal Respiratory: bilateral: CTA - Cardiovascular Rhythm: regular Heart Sounds: Present: S1 & S2. Absent: gallop, rub - Extremities Extremities: no ischemia, No edema, Full ROM - Abdominal General gastrointestinal: soft, non-tender, non-distended, normal bowel sounds - Integumentary Integumentary: Present: clear, warm, dry - Neurologic Neurologic: CNII-XII intact, moves all extremities Results - Labs CBC & Chem 7: 06/09/22 17:23 06/10/22 05:26 Labs: Laboratory Last Values WBC 8.7 K/mm3 (4.5-11.0) 06/09/22 17:23 RBC 5.29 M/mm3 (3.65-5.03) H 06/09/22 17:23 Hgb 16.3 gm/dl (10.1-14.3) H 06/09/22 17:23 Hct 49.9 % (30.3-42.9) H 06/09/22 17:23 MCV 94 fl (79-97) 06/09/22 17:23 MCH 31 pg (28-32) 06/09/22 17:23 MCHC 33 % (30-34) 06/09/22 17:23 RDW 12.6 % (13.2-15.2) L 06/09/22 17:23 Plt Count 338 K/mm3 (140-440) 06/09/22 17:23 Lymph % (Auto) 9.7 % (13.4-35.0) L 06/09/22 17:23 [place] % (Auto) 5.8 % (0.0-7.3) 06/09/22 17:23 Eos % (Auto) 0.0 % (0.0-4.3) 06/09/22 17: Baso % (Auto) 0.4 % (0.0-1.8) 06/09/22 17:23 Lymph # (Auto) 0.8 K/mm3 (1.2-5.4) L 06/09/22 17:23 [place] # (Auto) 0.5 K/mm3 (0.0-0.8) 06/09/22 17:23 Eos # (Auto) 0.0 K/mm3 (0.0-0.4) 06/09/22 17:23 Baso # (Auto) 0.0 K/mm3 (0.0-0.1) 06/09/22 17: Seg Neutrophils % 84.1 % (40.0-70.0) H 06/09/22 17:23 Seg Neutrophils # 7.3 K/mm3 (1.8-7.7) 06/09/22 17:23 Sodium 145 mmol/L (137-145) 06/10/22 05:26 Potassium 3.5 mmol/L (3.6-5.0) L 06/10/22 05:26 Chloride 105.4 mmol/L (98-107) 06/10/22 05:26 Carbon Dioxide 27 mmol/L (22-30) 06/10/22 05:26 Anion Gap 16 mmol/L 06/10/22 05:26 BUN 6 mg/dL (7-17) L 06/10/22 05:26 Creatinine 0.6 mg/dL (0.6-1.2) 06/10/22 05:26 Estimated GFR > 60 ml/min 06/10/22 05:26 BUN/Creatinine Ratio 10 % 06/10/22 05:26 Glucose 150 mg/dL (65-100) H 06/10/22 05:26 Calcium 9.0 mg/dL (8.4-10.2) 06/10/22 05:26 Total Bilirubin 0.80 mg/dL (0.1-1.2) 06/09/22 17:23 AST 15 units/L (5-40) 06/09/22 17:23 ALT 10 units/L (7-56) 06/09/22 17:23 Alkaline Phosphatase 59 units/L (35-129) 06/09/22 17:23 Total Protein 7.7 g/dL (6.3-8.2) 06/09/22 17:23 Albumin 4.7 g/dL (3.9-5) 06/09/22 17:23 Albumin/Globulin Ratio 1.6 % 06/09/22 17:23 Lipase 35 units/L (13-60) 06/09/22 17:23 Urine Color Colorless (Yellow) 06/09/22 19:46 Urine Turbidity Clear (Clear) 06/09/22 19:46 Specific [place] (Man) 1.000 (1.003-1.030) L 06/09/22 19:46 Ur Protein (Man) Negative mg/dL (Negative) 06/09/22 19:46 Ur Ketones (Man) Negative (Negative) 06/09/22 19:46 Ur Nitrite (Man) Negative (Negative) 06/09/22 19:46 Urine Bilirubin (Man) Negative (Negative) 06/09/22 19:46 Leukocyte Esterase (Man) Negative (Negative) 06/09/22 19:46 Urine WBC (Auto) 1.0 /HPF (0.0-6.0) 06/09/22 19:46 Urine RBC (Auto) < 1.0 /HPF (0.0-6.0) 06/09/22 19:46 U Epithel Cells (Auto) 2.0 /HPF (0-13.0) 06/09/22 19:46 Urine RBC (Manual) Negative (Negative) 06/09/22 19:46 Active Medications - Current Medications Current Medications: Generic Name Dose Route Start Last Admin Trade Name Freq PRN Reason Stop Dose Admin Acetaminophen 650 mg 06/09/22 22:09 Acetaminophen 325 Mg Tab PO Q4H PRN Pain MILD(1-3)/Fever >100.5/TRIVEDI Magnesium Hydroxide 30 ml 06/09/22 22:09 Magnesium Hydroxide (Mom) Oral Liqd Udc PO Q4H PRN Constipation Morphine Sulfate 2 mg 06/09/22 22:09 Morphine 2 Mg/1 Ml Inj IV Q4H PRN Pain, Moderate (4-6) Morphine Sulfate 4 mg 06/09/22 22:09 Morphine 4 Mg/1 Ml Inj IV Q4H PRN Pain , Severe (7-10) Ondansetron HCl 4 mg 06/09/22 22:09 Ondansetron 4 Mg/2 Ml Inj IV Q8H PRN Nausea And Vomiting Sodium Chloride 10 ml 06/10/22 10:00 Sodium Chloride 0.9% 10 Ml Flush Syringe IV BID RUEL Sodium Chloride 10 ml 06/09/22 22:09 Sodium Chloride 0.9% 10 Ml Flush Syringe IV PRN PRN LINE FLUSH
[2022-06-10] MEDS ORDERED: hydrALAZINE 20 MG/1 ML INJ IV PRN (10:00)
[2022-06-10] MEDS: SODIUM CHLORIDE 0.9% 1000 ML 1,000 ML IV SCH ×2 (11:10→21:20)
[2022-06-10] MEDS: MORPHINE 2 MG/1 ML INJ IV PRN (12:23)
[2022-06-11] MEDS: MORPHINE 2 MG/1 ML INJ IV PRN (01:53)
[2022-06-11] MEDS: SODIUM CHLORIDE 0.9% 1000 ML 1,000 ML IV SCH ×2 (07:19→17:30)
--- NOTE | 2022-06-11 07:35 | Progress Note ---
Assessment and Plan Assessment and plan: 76-year-old -[place] female with past medical history of hypertension, tobacco dependence, hyperlipidemia, diverticulitis and appendectomy in the past presenting to the emergency room today complaining of sudden onset of abdominal pain. CT of the abdomen and pelvis shows findings consistent with moderate grade partial small bowel obstruction. Partial small bowel obstruction Hypertension Hyperlipidemia Tobacco dependence 06/10/2022. Patient currently with NG tube to low intermittent suction. Continue n.p.o. status. Continue serial KUB. General surgery following. IV hydralazine while patient currently NPO. 06/11/2022. Continue NG tube to low intermittent suction. Continue IV fluids for supportive care. Continue n.p.o. status per general surgery recommendations. Follow-up KUB this morning. Patient remains normotensive History Interval history: No new issues overnight Hospitalist Physical - Constitutional Vitals: Temp Pulse Resp BP Pulse Ox 98.6 F 77 18 130/65 93 06/11/22 05:17 06/11/22 05:17 06/11/22 05:17 06/11/22 05:06/11/22 05:17 General appearance: Present: no acute distress, well-nourished - EENT Eyes: Present: PERRL, EOM intact ENT: hearing intact, clear oral mucosa, dentition normal - Neck Neck: Present: supple, normal ROM - Respiratory Respiratory effort: normal Respiratory: bilateral: CTA - Cardiovascular Rhythm: regular Heart Sounds: Present: S1 & S2. Absent: gallop, rub - Extremities Extremities: no ischemia, No edema, Full ROM - Abdominal General gastrointestinal: soft, non-tender, non-distended, normal bowel sounds - Integumentary Integumentary: Present: clear, warm, dry - Neurologic Neurologic: CNII-XII intact, moves all extremities Results - Labs CBC & Chem 7: 06/09/22 17:23 06/10/22 05:26 Labs: Laboratory Last Values WBC 8.7 K/mm3 (4.5-11.0) 06/09/22 17:23 RBC 5.29 M/mm3 (3.65-5.03) H 06/09/22 17:23 Hgb 16.3 gm/dl (10.1-14.3) H 06/09/22 17:23 Hct 49.9 % (30.3-42.9) H 06/09/22 17:23 MCV 94 fl (79-97) 06/09/22 17:23 MCH 31 pg (28-32) 06/09/22 17:23 MCHC 33 % (30-34) 06/09/22 17:23 RDW 12.6 % (13.2-15.2) L 06/09/22 17:23 Plt Count 338 K/mm3 (140-440) 06/09/22 17:23 Lymph % (Auto) 9.7 % (13.4-35.0) L 06/09/22 17:23 [place] % (Auto) 5.8 % (0.0-7.3) 06/09/22 17:23 Eos % (Auto) 0.0 % (0.0-4.3) 06/09/22 17: Baso % (Auto) 0.4 % (0.0-1.8) 06/09/22 17:23 Lymph # (Auto) 0.8 K/mm3 (1.2-5.4) L 06/09/22 17:23 [place] # (Auto) 0.5 K/mm3 (0.0-0.8) 06/09/22 17:23 Eos # (Auto) 0.0 K/mm3 (0.0-0.4) 06/09/22 17: Baso # (Auto) 0.0 K/mm3 (0.0-0.1) 06/09/22 17:23 Seg Neutrophils % 84.1 % (40.0-70.0) H 06/09/22 17: Seg Neutrophils # 7.3 K/mm3 (1.8-7.7) 06/09/22 17:23 Sodium 145 mmol/L (137-145) 06/10/22 05:26 Potassium 3.5 mmol/L (3.6-5.0) L 06/10/22 05:26 Chloride 105.4 mmol/L (98-107) 06/10/22 05:26 Carbon Dioxide 27 mmol/L (22-30) 06/10/22 05:26 Anion Gap 16 mmol/L 06/10/22 05:26 BUN 6 mg/dL (7-17) L 06/10/22 05:26 Creatinine 0.6 mg/dL (0.6-1.2) 06/10/22 05:26 Estimated GFR > 60 ml/min 06/10/22 05:26 BUN/Creatinine Ratio 10 % 06/10/22 05:26 Glucose 150 mg/dL (65-100) H 06/10/22 05:26 POC Glucose 118 mg/dL (70-105) H 06/10/22 22:05 Calcium 9.0 mg/dL (8.4-10.2) 06/10/22 05:26 Total Bilirubin 0.80 mg/dL (0.1-1.2) 06/09/22 17:23 AST 15 units/L (5-40) 06/09/22 17:23 ALT 10 units/L (7-56) 06/09/22 17:23 Alkaline Phosphatase 59 units/L (35-129) 06/09/22 17:23 Total Protein 7.7 g/dL (6.3-8.2) 06/09/22 17:23 Albumin 4.7 g/dL (3.9-5) 06/09/22 17:23 Albumin/Globulin Ratio 1.6 % 06/09/22 17:23 Lipase 35 units/L (13-60) 06/09/22 17:23 Urine Color Colorless (Yellow) 06/09/22 19:46 Urine Turbidity Clear (Clear) 06/09/22 19:46 Specific [place] (Man) 1.000 (1.003-1.030) L 06/09/22 19:46 Ur Protein (Man) Negative mg/dL (Negative) 06/09/22 19:46 Ur Ketones (Man) Negative (Negative) 06/09/22 19:46 Ur Nitrite (Man) Negative (Negative) 06/09/22 19:46 Urine Bilirubin (Man) Negative (Negative) 06/09/22 19:46 Leukocyte Esterase (Man) Negative (Negative) 06/09/22 19:46 Urine WBC (Auto) 1.0 /HPF (0.0-6.0) 06/09/22 19:46 Urine RBC (Auto) < 1.0 /HPF (0.0-6.0) 06/09/22 19:46 U Epithel Cells (Auto) 2.0 /HPF (0-13.0) 06/09/22 19:46 Urine RBC (Manual) Negative (Negative) 06/09/22 19:46 Active Medications - Current Medications Current Medications: Generic Name Dose Route Start Last Admin Trade Name Freq PRN Reason Stop Dose Admin Acetaminophen 650 mg 06/09/22 22:09 Acetaminophen 325 Mg Tab PO Q4H PRN Pain MILD(1-3)/Fever >100.5/TRIVEDI Hydralazine HCl 10 mg 06/10/22 10:00 Hydralazine 20 Mg/1 Ml Inj IV Q4HR PRN Blood Pressure Sodium Chloride 1,000 mls @ 100 mls/hr 06/10/22 11:00 06/11/22 07:19 Nacl 0.9% 1000 Ml IV 06/16/22 10:59 100 mls/hr DIRECT RUEL Administration Magnesium Hydroxide 30 ml 06/09/22 22:09 Magnesium Hydroxide (Mom) Oral Liqd Udc PO Q4H PRN Constipation Morphine Sulfate 2 mg 06/09/22 22:09 06/11/22 01:53 Morphine 2 Mg/1 Ml Inj IV 2 mg Q4H PRN Administration Pain, Moderate (4-6) Morphine Sulfate 4 mg 06/09/22 22:09 Morphine 4 Mg/1 Ml Inj IV Q4H PRN Pain , Severe (7-10) Ondansetron HCl 4 mg 06/09/22 22:09 Ondansetron 4 Mg/2 Ml Inj IV Q8H PRN Nausea And Vomiting Sodium Chloride 10 ml 06/10/22 10:00 06/10/22 21:25 Sodium Chloride 0.9% 10 Ml Flush Syringe IV 10 ml BID RUEL Administration Sodium Chloride 10 ml 06/09/22 22:09 Sodium Chloride 0.9% 10 Ml Flush Syringe IV PRN PRN LINE FLUSH
--- NOTE | 2022-06-11 09:02 | XRay Report ---
ABDOMEN 1 VIEW 06/11/2022 8:38 AM INDICATION / CLINICAL INFORMATION: SBO. COMPARISON: Yesterday FINDINGS: TUBES / LINES: NG tube tip and sidehole project over the stomach. BOWEL GAS PATTERN: Pathologic small bowel dilation to maximum degree of 4.5 cm, slightly increased co mpared to previous radiograph. FREE AIR / EXTRALUMINAL GAS: None. ADDITIONAL FINDINGS: No significant additional findings. IMPRESSION: 1. Features supportive of worsening small bowel obstruction. Signer Name: Ciro Metzger MD Signed: 06/11/2022 8:58 AM Workstation Name: [email or web address]
--- NOTE | 2022-06-11 14:59 | Progress Note ---
Assessment and Plan - Patient Problems (1) Bowel obstruction Current Visit: Yes Status: Acute Plan to address problem: 1) CBC, BMP and AXR in the am 2) Continue NG to LIS 3) Pt and daughter were educated that JANIE may be necessary if pt fails to furth er improve over the next 24-48 hours. Subjective Date of service: 06/11/22 Patient Reports: Positive: no new complaints, flatus. Negative: no bowel movement Objective Vital Signs - 12hr 06/11/22 06/11/22 05:17 12:29 Temperature 98.6 F 98.7 F Pulse Rate 77 78 Respiratory 18 16 Rate Blood Pressure 130/65 148/68 O2 Sat by Pulse 93 96 Oximetry - Abdomen soft, bowel sounds hypoactive (Mildly distended. Minimally tender.), not rebound, not guarding - Labs 06/09/22 17:23 06/10/22 05:26 - Imaging Abdominal x-ray: report reviewed
--- NOTE | 2022-06-11 21:57 | XRay Report ---
ABDOMEN 1 VIEW 06/11/2022 9:30 PM INDICATION / CLINICAL INFORMATION: NGT placement. COMPARISON: Earlier today FINDINGS: TUBES / LINES: NG tube tip and sidehole project over the stomach. BOWEL GAS PATTERN: Similar pathologic small bowel dilation most consistent with bowel obstruction. FREE AIR / EXTRALUMINAL GAS: None. ADDITIONAL FINDINGS: No significant additional findings. IMPRESSION: 1. NG tube tip and sidehole project over the stomach. 2. Radiographically similar abnormal bowel gas pattern most consistent with small bowel obstruction. Signer Name: Ciro Metzger MD Signed: 06/11/2022 9:53 PM Workstation Name: [id number]
[2022-06-12] MEDS: SODIUM CHLORIDE 0.9% 1000 ML 1,000 ML IV SCH (03:15)
--- NOTE | 2022-06-12 08:43 | XRay Report ---
ABDOMEN 2 VIEW(S) INDICATION / CLINICAL INFORMATION: sbo. COMPARISON: Yesterday FINDINGS: TUBES / LINES: Nasogastric tube is in adequate position terminating in the mid to distal stomach BOWEL GAS PATTERN: Mild improvement and small bowel dilatation is demonstrated. There are a few mildl y dilated loops of small bowel remaining in the upper abdomen. There is normal gas and stool in the c olon. FREE AIR / EXTRALUMINAL GAS: None seen. ADDITIONAL FINDINGS: No significant additional findings. IMPRESSION: Mild improvement in the partial small bowel obstruction pattern Signer Name: John Vigil Jr, MD Signed: 06/12/2022 8:38 AM Workstation Name: [id number]
--- NOTE | 2022-06-12 09:05 | Progress Note ---
Assessment and Plan Assessment and plan: 76-year-old -[place] female with past medical history of hypertension, tobacco dependence, hyperlipidemia, diverticulitis and appendectomy in the past presenting to the emergency room today complaining of sudden onset of abdominal pain. CT of the abdomen and pelvis shows findings consistent with moderate grade partial small bowel obstruction. Partial small bowel obstruction Hypertension Hyperlipidemia Tobacco dependence 06/10/2022. Patient currently with NG tube to low intermittent suction. Continue n.p.o. status. Continue serial KUB. General surgery following. IV hydralazine while patient currently NPO. 06/11/2022. Continue NG tube to low intermittent suction. Continue IV fluids for supportive care. Continue n.p.o. status per general surgery recommendations. Follow-up KUB this morning. Patient remains normotensive 06/12/2022. NG tube was dislodged yesterday when patient sneezed. NG tube was replaced. KUB was completed this morning and we will follow-up results. C ontinue n.p.o. status. Continue serial KUB. General surgery following. IV hydralazine while patient currently NPO. Continue supportive care with IV fluid hydration. History Interval history: No new issues overnight Hospitalist Physical - Constitutional Vitals: Temp Pulse Resp BP Pulse Ox 98.3 F 77 18 144/65 94 06/12/22 05:11 06/12/22 05:11 06/12/22 05:11 06/12/22 05:11 06/12/22 05:11 General appearance: Present: no acute distress, well-nourished - EENT Eyes: Present: PERRL, EOM intact ENT: hearing intact, clear oral mucosa, dentition normal - Neck Neck: Present: supple, normal ROM - Respiratory Respiratory effort: normal Respiratory: bilateral: CTA - Cardiovascular Rhythm: regular Heart Sounds: Present: S1 & S2. Absent: gallop, rub - Extremities Extremities: no ischemia, No edema, Full ROM - Abdominal General gastrointestinal: soft, non-tender, non-distended, normal bowel sounds - Integumentary Integumentary: Present: clear, warm, dry - Neurologic Neurologic: CNII-XII intact, moves all extremities Results - Labs CBC & Chem 7: 06/09/22 17:23 06/10/22 05:26 Labs: Laboratory Last Values WBC 8.7 K/mm3 (4.5-11.0) 06/09/22 17: RBC 5.29 M/mm3 (3.65-5.03) H 06/09/22 17: Hgb 16.3 gm/dl (10.1-14.3) H 06/09/22 17: Hct 49.9 % (30.3-42.9) H 06/09/22 17: MCV 94 fl (79-97) 06/09/22 17: MCH 31 pg (28-32) 06/09/22 17: MCHC 33 % (30-34) 06/09/22 17: RDW 12.6 % (13.2-15.2) L 06/09/22: Plt Count 338 K/mm3 (140-440) 06/09/22 17: Lymph % (Auto) 9.7 % (13.4-35.0) L 06/09/22 17: [place] % (Auto) 5.8 % (0.0-7.3) 06/09/22 17: Eos % (Auto) 0.0 % (0.0-4.3) 06/09/22 17: Baso % (Auto) 0.4 % (0.0-1.8) 06/09/22 17: Lymph # (Auto) 0.8 K/mm3 (1.2-5.4) L 06/09/22 17: [place] # (Auto) 0.5 K/mm3 (0.0-0.8) 06/09/22: Eos # (Auto) 0.0 K/mm3 (0.0-0.4) 06/09/22 17: Baso # (Auto) 0.0 K/mm3 (0.0-0.1) 06/09/22: Seg Neutrophils % 84.1 % (40.0-70.0) H 06/09/22: Seg Neutrophils # 7.3 K/mm3 (1.8-7.7) 06/09/22 17: Sodium 145 mmol/L (137-145) 06/10/22 05:26 Potassium 3.5 mmol/L (3.6-5.0) L 06/10/22 05:26 Chloride 105.4 mmol/L (98-107) 06/10/22 05:26 Carbon Dioxide 27 mmol/L (22-30) 06/10/22 05:26 Anion Gap 16 mmol/L 06/10/22 05:26 BUN 6 mg/dL (7-17) L 06/10/22 05:26 Creatinine 0.6 mg/dL (0.6-1.2) 06/10/22 05:26 Estimated GFR > 60 ml/min 06/10/22 05:26 BUN/Creatinine Ratio 10 % 06/10/22 05:26 Glucose 150 mg/dL (65-100) H 06/10/22 05:26 POC Glucose 118 mg/dL (70-105) H 06/10/22 22:05 Calcium 9.0 mg/dL (8.4-10.2) 06/10/22 05:26 Total Bilirubin 0.80 mg/dL (0.1-1.2) 06/09/22 17:23 AST 15 units/L (5-40) 06/09/22 17:23 ALT 10 units/L (7-56) 06/09/22 17:23 Alkaline Phosphatase 59 units/L (35-129) 06/09/22 17:23 Total Protein 7.7 g/dL (6.3-8.2) 06/09/22 17:23 Albumin 4.7 g/dL (3.9-5) 06/09/22 17:23 Albumin/Globulin Ratio 1.6 % 06/09/22 17:23 Lipase 35 units/L (13-60) 06/09/22 17:23 Urine Color Colorless (Yellow) 06/09/22 19:46 Urine Turbidity Clear (Clear) 06/09/22 19:46 Specific [place] (Man) 1.000 (1.003-1.030) L 06/09/22 19:46 Ur Protein (Man) Negative mg/dL (Negative) 06/09/22 19:46 Ur Ketones (Man) Negative (Negative) 06/09/22 19:46 Ur Nitrite (Man) Negative (Negative) 06/09/22 19:46 Urine Bilirubin (Man) Negative (Negative) 06/09/22 19:46 Leukocyte Esterase (Man) Negative (Negative) 06/09/22 19:46 Urine WBC (Auto) 1.0 /HPF (0.0-6.0) 06/09/22 19:46 Urine RBC (Auto) < 1.0 /HPF (0.0-6.0) 06/09/22 19:46 U Epithel Cells (Auto) 2.0 /HPF (0-13.0) 06/09/22 19:46 Urine RBC (Manual) Negative (Negative) 06/09/22 19:46 Pace/IV: Voiding Method Bedside Commode Active Medications - Current Medications Current Medications: Generic Name Dose Route Start Last Admin Trade Name Freq PRN Reason Stop Dose Admin Acetaminophen 650 mg 06/09/22 22:09 Acetaminophen 325 Mg Tab PO Q4H PRN Pain MILD(1-3)/Fever >100.5/TRIVEDI Hydralazine HCl 10 mg 06/10/22 10:00 Hydralazine 20 Mg/1 Ml Inj IV Q4HR PRN Blood Pressure Sodium Chloride 1,000 mls @ 100 mls/hr 06/10/22 11:00 06/12/22 03:15 Nacl 0.9% 1000 Ml IV 06/16/22 10:59 100 mls/hr DIRECT RUEL Administration Magnesium Hydroxide 30 ml 06/09/22 22:09 Magnesium Hydroxide (Mom) Oral Liqd Udc PO Q4H PRN Constipation Morphine Sulfate 2 mg 06/09/22 22:09 06/11/22 01:53 Morphine 2 Mg/1 Ml Inj IV 2 mg Q4H PRN Administration Pain, Moderate (4-6) Morphine Sulfate 4 mg 06/09/22 22:09 Morphine 4 Mg/1 Ml Inj IV Q4H PRN Pain , Severe (7-10) Ondansetron HCl 4 mg 06/09/22 22:09 Ondansetron 4 Mg/2 Ml Inj IV Q8H PRN Nausea And Vomiting Sodium Chloride 10 ml 06/10/22 10:00 06/11/22 23:02 Sodium Chloride 0.9% 10 Ml Flush Syringe IV 10 ml BID RUEL Administration Sodium Chloride 10 ml 06/09/22 22:09 Sodium Chloride 0.9% 10 Ml Flush Syringe IV PRN PRN LINE FLUSH
[2022-06-12 09:06] LABS: Basophils % (Auto) 0.5 % (0.0-1.8); Eosinophils % (Auto) 0.8 % (0.0-4.3); Lymphocytes % (Auto) 19.5 % (13.4-35.0); Mean Corpuscular HGB Conc 33 % (30-34); Mean Corpuscular Volume 96 fl (79-97); Monocytes # (Auto) 0.4 K/mm3 (0.0-0.8); Monocytes % (Auto) 7.5 % (0.0-7.3); Platelet Count 233 K/mm3 (140-440); Red Blood Count 3.77 M/mm3 (3.65-5.03); Red Cell Distribution Width 12.5 % (13.2-15.2)
[2022-06-12 09:09] LABS: Blood Urea Nitrogen 9 mg/dL (7-17); Calcium 8.1 mg/dL (8.4-10.2); Hemolysis Index 6
[2022-06-12 09:23] LABS: BUN/Creatinine Ratio 18
--- NOTE | 2022-06-12 10:00 | Progress Note ---
Assessment and Plan 76-year-old -[place] female with significant history of diverticulitis, hysterectomy and appendectomy in the past presenting to the emergency room 06/09/22 complaining of sudden onset of abdominal pain. Positive flatus, llq abdo pain continues. Will clamp ng today. Return to suction for n/v or increased pain. Subjective Date of service: 06/12/22 Patient Reports: Positive: still having pain, flatus, no bowel movement Narrative: Pt notes cont pain in the llq. pos flatus neg bm. Objective Vital Signs - 12hr 06/11/22 06/11/22 06/12/22 22:17 23:00 05:11 Temperature 98.5 F 98.3 F Pulse Rate 80 77 Respiratory 18 18 Rate Blood Pressure 154/76 144/65 O2 Sat by Pulse 98 93 94 Oximetry - Labs 06/12/22 07:46 06/12/22 07:46 Diabetes panel 06/12/22 Range/Units 07:46 Sodium 147 H (137-145) mmol/L Potassium 3.7 (3.6-5.0) mmol/L Chloride 113.8 H (98-107) mmol/L Carbon Dioxide 19 L D (22-30) mmol/L BUN 9 (7-17) mg/dL Creatinine 0.5 L (0.6-1.2) mg/dL Glucose 62 L (65-100) mg/dL Calcium 8.1 L (8.4-10.2) mg/dL Calcium panel 06/12/22 Range/Units 07:46 Calcium 8.1 L (8.4-10.2) mg/dL Pituitary panel 06/12/22 Range/Units 07:46 Sodium 147 H (137-145) mmol/L Potassium 3.7 (3.6-5.0) mmol/L Chloride 113.8 H (98-107) mmol/L Carbon Dioxide 19 L D (22-30) mmol/L BUN 9 (7-17) mg/dL Creatinine 0.5 L (0.6-1.2) mg/dL Glucose 62 L (65-100) mg/dL Calcium 8.1 L (8.4-10.2) mg/dL Adrenal panel 06/12/22 Range/Units 07:46 Sodium 147 H (137-145) mmol/L Potassium 3.7 (3.6-5.0) mmol/L Chloride 113.8 H (98-107) mmol/L Carbon Dioxide 19 L D (22-30) mmol/L BUN 9 (7-17) mg/dL Creatinine 0.5 L (0.6-1.2) mg/dL Glucose 62 L (65-100) mg/dL Calcium 8.1 L (8.4-10.2) mg/dL
[2022-06-12 11:31] LABS: Hematocrit 35.7 % (30.3-42.9); Hemoglobin 11.8 gm/dl (10.1-14.3)
[2022-06-13] MEDS: SODIUM CHLORIDE 0.9% 1000 ML 1,000 ML IV SCH (05:42)
--- NOTE | 2022-06-13 07:49 | Progress Note ---
Assessment and Plan Assessment and plan: 76-year-old -[place]isian female with past medical history of hypertension, tobacco dependence, hyperlipidemia, diverticulitis and appendectomy in the past presenting to the emergency room today complaining of sudden onset of abdominal pain. CT of the abdomen and pelvis shows findings consistent with moderate grade partial small bowel obstruction. --Partial small bowel obstruction; Continue n.p.o. status, change fluids to D5 half-normal saline Serial abdominal x-rays Surgery following --Hypernatremia ; Change IV fluids to D5 half-normal saline Closely monitor electrolytes --hypertension; Well-controlled this morning Continue as needed IV hydralazine Monitor blood pressures -- Hypoglycemia; Secondary to n.p.o. status Change IV fluids to D5 half-normal Closely monitor blood sugars IV D50 as needed --Hyperlipidemia; Will check fasting lipid panel, patient n.p.o. today --Tobacco dependence; Smoking cessation counseling, nicotine patch as needed --DVT prophylaxis; SCDs/no pharmacologic anticoagulation due to possible surgical procedure if no improvement 06/10/2022. Patient currently with NG tube to low intermittent suction. Continue n.p.o. status. Continue serial KUB. General surgery following. IV hydralazine while patient currently NPO. 06/11/2022. Continue NG tube to low intermittent suction. Continue IV fluids for supportive care. Continue n.p.o. status per general surgery recommendations. Follow-up KUB this morning. Patient remains normotensive 06/12/2022. NG tube was dislodged yesterday when patient sneezed. NG tube was replaced. KUB was completed this morning and we will follow-up results. Continue n.p.o. status. Continue serial KUB. General surgery following. IV hydralazine while patient currently NPO. Continue supportive care with IV fluid hydration. 06/13; continue n.p.o. status, IV fluids, surgery following, follow today's abdominal x-ray and abdominal series recommended by surgeon History Interval history: I have seen and examined the patient at the bedside Patient's chart and medications reviewed Patient feels slightly better Follow-up abdominal x-ray ordered this morning Patient is n.p.o. status on IV fluids and ice chips by mouth Vital signs reviewed Hospitalist Physical - Constitutional Vitals: Temp Pulse Resp BP Pulse Ox 99.0 F 70 18 144/67 96 06/13/22 06:07 06/13/22 06:07 06/13/22 06:07 06/13/22 06:07 06/13/22 06:07 General appearance: Present: no acute distress, well-nourished - EENT Eyes: Present: PERRL, EOM intact - Neck Neck: Present: supple, normal ROM - Respiratory Respiratory effort: normal Respiratory: bilateral: diminished, negative: rales, rhonchi, wheezing - Cardiovascular Rhythm: regular Heart Sounds: Present: S1 & S2 - Extremities Extremities: no ischemia, No edema - Abdominal General gastrointestinal: soft, non-tender, distended (Mild distention), hypoact guerita bowel sounds - Integumentary Integumentary: Present: clear, warm - Psychiatric Psychiatric: appropriate mood/affect, cooperative - Neurologic Neurologic: moves all extremities Results - Labs CBC & Chem 7: 06/12/22 07:46 06/12/22 07:46 Labs: Laboratory Last Values WBC 5.0 K/mm3 (4.5-11.0) 06/12/22 07:46 RBC 3.77 M/mm3 (3.65-5.03) 06/12/22 07:46 Hgb 11.8 gm/dl (10.1-14.3) D 06/12/22 07:46 Hct 35.7 % (30.3-42.9) D 06/12/22 07:46 MCV 96 fl (79-97) 06/12/22 07:46 MCH 32 pg (28-32) 06/12/22 07:46 MCHC 33 % (30-34) 06/12/22 07:46 RDW 12.5 % (13.2-15.2) L 06/12/22 07:46 Plt Count 233 K/mm3 (140-440) 06/12/22 07:46 Lymph % (Auto) 19.5 % (13.4-35.0) 06/12/22 07:46 [place] % (Auto) 7.5 % (0.0-7.3) H 06/12/22 07:46 Eos % (Auto) 0.8 % (0.0-4.3) 06/12/22 07:46 Baso % (Auto) 0.5 % (0.0-1.8) 06/12/22 07:46 Lymph # (Auto) 1.0 K/mm3 (1.2-5.4) L 06/12/22 07:46 [place] # (Auto) 0.4 K/mm3 (0.0-0.8) 06/12/22 07:46 Eos # (Auto) 0.0 K/mm3 (0.0-0.4) 06/12/22 07:46 Baso # (Auto) 0.0 K/mm3 (0.0-0.1) 06/12/22 07:46 Add Manual Diff Complete 06/12/22 07:46 Seg Neutrophils % 71.7 % (40.0-70.0) H 06/12/22 07:46 Seg Neutrophils # 3.6 K/mm3 (1.8-7.7) 06/12/22 07:46 Sodium 147 mmol/L (137-145) H 06/12/22 07:46 Potassium 3.7 mmol/L (3.6-5.0) 06/12/22 07:46 Chloride 113.8 mmol/L (98-107) H 06/12/22 07:46 Carbon Dioxide 19 mmol/L (22-30) L D 06/12/22 07:46 Anion Gap 18 mmol/L 06/12/22 07:46 BUN 9 mg/dL (7-17) 06/12/22 07:46 Creatinine 0.5 mg/dL (0.6-1.2) L 06/12/22 07:46 Estimated GFR > 60 ml/min 06/12/22 07:46 BUN/Creatinine Ratio 18 % 06/12/22 07:46 Glucose 62 mg/dL (65-100) L 06/12/22 07:46 POC Glucose 118 mg/dL (70-105) H 06/10/22 22:05 Calcium 8.1 mg/dL (8.4-10.2) L 06/12/22 07:46 Total Bilirubin 0.80 mg/dL (0.1-1.2) 06/09/22 17:23 AST 15 units/L (5-40) 06/09/22 17:23 ALT 10 units/L (7-56) 06/09/22 17:23 Alkaline Phosphatase 59 units/L (35-129) 06/09/22 17:23 Total Protein 7.7 g/dL (6.3-8.2) 06/09/22 17:23 Albumin 4.7 g/dL (3.9-5) 06/09/22 17:23 Albumin/Globulin Ratio 1.6 % 06/09/22 17:23 Lipase 35 units/L (13-60) 06/09/22 17:23 Urine Color Colorless (Yellow) 06/09/22 19:46 Urine Turbidity Clear (Clear) 06/09/22 19:46 Specific [place] (Man) 1.000 (1.003-1.030) L 06/09/22 19:46 Ur Protein (Man) Negative mg/dL (Negative) 06/09/22 19:46 Ur Ketones (Man) Negative (Negative) 06/09/22 19:46 Ur Nitrite (Man) Negative (Negative) 06/09/22 19:46 Urine Bilirubin (Man) Negative (Negative) 06/09/22 19:46 Leukocyte Esterase (Man) Negative (Negative) 06/09/22 19:46 Urine WBC (Auto) 1.0 /HPF (0.0-6.0) 06/09/22 19:46 Urine RBC (Auto) < 1.0 /HPF (0.0-6.0) 06/09/22 19:46 U Epithel Cells (Auto) 2.0 /HPF (0-13.0) 06/09/22 19:46 Urine RBC (Manual) Negative (Negative) 06/09/22 19:46 Pace/IV: Voiding Method Bedside Commode Active Medications - Current Medications Current Medications: Generic Name Dose Route Start Last Admin Trade Name Freq PRN Reason Stop Dose Admin Acetaminophen 650 mg 06/09/22 22:09 Acetaminophen 325 Mg Tab PO Q4H PRN Pain MILD(1-3)/Fever >100.5/TRIVEDI Hydralazine HCl 10 mg 06/10/22 10:00 Hydralazine 20 Mg/1 Ml Inj IV Q4HR PRN Blood Pressure Sodium Chloride 1,000 mls @ 100 mls/hr 06/10/22 11:00 06/13/22 05:42 Nacl 0.9% 1000 Ml IV 06/16/22 10:59 100 mls/hr DIRECT RUEL Administration Magnesium Hydroxide 30 ml 06/09/22 22:09 Magnesium Hydroxide (Mom) Oral Liqd Udc PO Q4H PRN Constipation Morphine Sulfate 2 mg 06/09/22 22:09 06/11/22 01:53 Morphine 2 Mg/1 Ml Inj IV 2 mg Q4H PRN Administration Pain, Moderate (4-6) Morphine Sulfate 4 mg 06/09/22 22:09 Morphine 4 Mg/1 Ml Inj IV Q4H PRN Pain , Severe (7-10) Ondansetron HCl 4 mg 06/09/22 22:09 Ondansetron 4 Mg/2 Ml Inj IV Q8H PRN Nausea And Vomiting Sodium Chloride 10 ml 06/10/22 10:00 06/13/22 01:06 Sodium Chloride 0.9% 10 Ml Flush Syringe IV 10 ml BID RUEL Administration Sodium Chloride 10 ml 06/09/22 22:09 Sodium Chloride 0.9% 10 Ml Flush Syringe IV PRN PRN LINE FLUSH
[2022-06-13] MEDS ORDERED: DEXTROSE 50% IN WATER (25GM) 50 ML SYRINGE IV PRN ×2 (07:54→09:00)
--- NOTE | 2022-06-13 08:36 | Progress Note ---
Assessment and Plan 76-year-old -British female with significant history of diverticulitis, hysterectomy and appendectomy in the past presenting to the emergency room 06/09/22 complaining of sudden onset of abdominal pain. Abdo xray from this am reviewed, no change from rior study. Air is present in the rectum and colon. will try gastrograffin sbft thoday. Subjective Date of service: 06/13/22 Patient Reports: Positive: still having pain Narrative: Abdo xray from this am reviewed, no change from rior study. Air is present in the rectum and colon. will try gastrograffin sbft thoday. Objective Vital Signs - 12hr 06/12/22 06/12/22 06/13/22 21:57 23:00 06:07 Temperature 98.4 F 99.0 F Pulse Rate 70 Respiratory 20 18 Rate Blood Pressure 168/77 144/67 O2 Sat by Pulse 97 96 Oximetry - Labs 06/12/22 07:46 06/12/22 07:46 Diabetes panel 06/12/22 Range/Units 07:46 Sodium 147 H (137-145) mmol/L Potassium 3.7 (3.6-5.0) mmol/L Chloride 113.8 H (98-107) mmol/L Carbon Dioxide 19 L D (22-30) mmol/L BUN 9 (7-17) mg/dL Creatinine 0.5 L (0.6-1.2) mg/dL Glucose 62 L (65-100) mg/dL Calcium 8.1 L (8.4-10.2) mg/dL Calcium panel 06/12/22 Range/Units 07:46 Calcium 8.1 L (8.4-10.2) mg/dL Pituitary panel 06/12/22 Range/Units 07:46 Sodium 147 H (137-145) mmol/L Potassium 3.7 (3.6-5.0) mmol/L Chloride 113.8 H (98-107) mmol/L Carbon Dioxide 19 L D (22-30) mmol/L BUN 9 (7-17) mg/dL Creatinine 0.5 L (0.6-1.2) mg/dL Glucose 62 L (65-100) mg/dL Calcium 8.1 L (8.4-10.2) mg/dL Adrenal panel 06/12/22 Range/Units 07:46 Sodium 147 H (137-145) mmol/L Potassium 3.7 (3.6-5.0) mmol/L Chloride 113.8 H (98-107) mmol/L Carbon Dioxide 19 L D (22-30) mmol/L BUN 9 (7-17) mg/dL Creatinine 0.5 L (0.6-1.2) mg/dL Glucose 62 L (65-100) mg/dL Calcium 8.1 L (8.4-10.2) mg/dL
--- NOTE | 2022-06-13 08:59 | XRay Report ---
ABDOMEN 2 VIEW(S) INDICATION / CLINICAL INFORMATION: Follow-up small bowel obstruction. COMPARISON: 06/12/2022 FINDINGS: TUBES / LINES: Stable position of NG tube BOWEL GAS PATTERN/EXTRALUMINAL GAS: Mild residual small bowel distention, similar to prior. No pneuma tosis or secondary signs of free air. ADDITIONAL FINDINGS: No significant additional findings. IMPRESSION: 1. Largely unchanged mild small bowel distention. Signer Name: Vinnie Manley MD Signed: 06/13/2022 8:55 AM Workstation Name: [id number] (formerly [id number])
[2022-06-13] MEDS: D5W/0.45% NACL 1,000 ML IV SCH (09:19)
[2022-06-13] MEDS ORDERED: ENOXAPARIN 30 MG/0.3 ML INJ SUB-Q SCH (10:00)
--- NOTE | 2022-06-13 10:52 | Fluoroscopy Report ---
UPPER GI HISTORY: Partial small bowel obstruction. TECHNIQUE: Single contrast barium technique utilized to evaluate the esophagus, stomach, and duodena l C-loop. FINDINGS: [employer] film of the abdomen demonstrates a nasogastric tube terminating in the distal stomach . There are a few dilated loops of small bowel in the mid abdomen measuring up to 4.4 cm. To begin th e exam, swallowing was evaluated in the lateral position under direct fluoroscopy. Swallowing was no rmal. The esophagus, stomach and duodenum are unremarkable. Multiple loops of jejunal small bowel in the le ft abdomen are also unremarkable. No mucosal irregularity, mass, mass effect, or critical stenosis. There were no abnormal tertiary contractions as seen with dysmotility. No gastroesophageal reflux. IMPRESSION: [employer] film of the abdomen suggests a partial small bowel obstruction pattern. Upper GI f indings are within normal limits. The duodenum and multiple proximal loops of jejunum are unremarkabl e. Fluoroscopic time: 2.5 minutes Number of fluoroscopic images: 40 Signer Name: John Vigil Jr, MD Signed: 06/13/2022 10:47 AM Workstation Name: [id number]
[2022-06-13 12:01] LABS: Chol/HDL Ratio 2.63 %
[2022-06-14] MEDS: D5W/0.45% NACL 1,000 ML IV SCH ×2 (01:14→23:14)
[2022-06-14 06:40] LABS: Alanine Aminotransferase 6 units/L (7-56); Albumin 3.7 g/dL (3.9-5); BUN/Creatinine Ratio 8; Blood Urea Nitrogen 3 mg/dL (7-17); Calcium 8.7 mg/dL (8.4-10.2); Hemolysis Index 6
--- NOTE | 2022-06-14 08:27 | Progress Note ---
Assessment and Plan Assessment and plan: 76-year-old -[place] female with past medical history of hypertension, tobacco dependence, hyperlipidemia, diverticulitis and appendectomy in the past presenting to the emergency room today complaining of sudden onset of abdominal pain. CT of the abdomen and pelvis shows findings consistent with moderate grade partial small bowel obstruction. --Partial small bowel obstruction; Continue n.p.o. status, change fluids to D5 half-normal saline Serial abdominal x-rays Surgery following, possible clear/full liquid diet as tolerated If okay with surgeon Gastrografin upper GI study ; 06/13 environmental solutions engineer film of the abdomen suggests partial small bowel obstruction patent Upper GI findings are within normal limits the duodenum and multiple proximal loops of jejunum are unremarkable X-ray abdomen 2 views; 06/13 largely unchanged mild small bowel distention --Hypernatremia ; resolved sodium 142 Continue IV fluids to D5 half-normal saline Closely monitor electrolytes --Hypokalemia; K3.3 Replenished with IV KCl 40 mEq Monitor electrolytes --hypertension; moderate control,this morning Continue as needed IV hydralazine Monitor blood pressures -- Hypoglycemia; Secondary to n.p.o. status Change IV fluids to D5 half-normal Closely monitor blood sugars IV D50 as needed --Hyperlipidemia; Will check fasting lipid panel, patient n.p.o. today --Tobacco dependence; Smoking cessation counseling, nicotine patch as needed --DVT prophylaxis; SCDs/no pharmacologic anticoagulation due to possible surgical procedure if no improvement 06/10/2022. Patient currently with NG tube to low intermittent suction. Continue n.p.o. status. Continue serial KUB. General surgery following. IV hydralazine while patient currently NPO. 06/11/2022. Continue NG tube to low intermittent suction. Continue IV fluids for supportive care. Continue n.p.o. status per general surgery recommendations. Follow-up KUB this morning. Patient remains normotensive 06/12/2022. NG tube was dislodged yesterday when patient sneezed. NG tube was replaced. KUB was completed this morning and we will follow-up results. Continue n.p.o. status. Continue serial KUB. General surgery following. IV hydralazine while patient currently NPO. Continue supportive care with IV fluid hydration. 06/13; continue n.p.o. status, IV fluids, surgery following, follow today's abdominal x-ray and abdominal series recommended by surgeon 06/14; patient feels better, NG tube is out, clear/full liquid diet as tolerated if agreeable to surgeon History Interval history: I have seen and examined the patient at the bedside Patient's chart and medications reviewed Patient remains n.p.o. status Vital signs reviewed Gastrografin upper GI study ; 06/13/2020 environmental solutions engineer film of the abdomen suggests partial small bowel obstruction patent Upper GI findings are within normal limits the duodenum and multiple proximal loops of jejunum are unremarkable Hospitalist Physical - Constitutional Vitals: Temp Pulse Resp BP Pulse Ox 98.8 F 64 18 161/73 98 06/14/22 05:52 06/14/22 05:55 06/14/22 05:52 06/14/22 05:55 06/14/22 05:52 General appearance: Present: no acute distress, well-nourished - EENT Eyes: Present: PERRL, EOM intact - Neck Neck: Present: supple, normal ROM - Respiratory Respiratory effort: normal Respiratory: bilateral: diminished, negative: rales, rhonchi, wheezing - Cardiovascular Rhythm: regular Heart Sounds: Present: S1 & S2 - Extremities Extremities: no ischemia, No edema - Abdominal General gastrointestinal: soft, non-tender, distended (Very minimal distention), normal bowel sounds - Integumentary Integumentary: Present: clear, warm - Psychiatric Psychiatric: appropriate mood/affect, cooperative - Neurologic Neurologic: CNII-XII intact, moves all extremities Results - Labs CBC & Chem 7: 06/12/22 07:46 06/14/22 05:21 Labs: Laboratory Last Values WBC 5.0 K/mm3 (4.5-11.0) 06/12/22 07:46 RBC 3.77 M/mm3 (3.65-5.03) 06/12/22 07:46 Hgb 11.8 gm/dl (10.1-14.3) D 06/12/22 07:46 Hct 35.7 % (30.3-42.9) D 06/12/22 07:46 MCV 96 fl (79-97) 06/12/22 07:46 MCH 32 pg (28-32) 06/12/22 07:46 MCHC 33 % (30-34) 06/12/22 07:46 RDW 12.5 % (13.2-15.2) L 06/12/22 07:46 Plt Count 233 K/mm3 (140-440) 06/12/22 07:46 Lymph % (Auto) 19.5 % (13.4-35.0) 06/12/22 07:46 Bartholomew % (Auto) 7.5 % (0.0-7.3) H 06/12/22 07:46 Eos % (Auto) 0.8 % (0.0-4.3) 06/12/22 07:46 Baso % (Auto) 0.5 % (0.0-1.8) 06/12/22 07:46 Lymph # (Auto) 1.0 K/mm3 (1.2-5.4) L 06/12/22 07:46 Bartholomew # (Auto) 0.4 K/mm3 (0.0-0.8) 06/12/22 07:46 Eos # (Auto) 0.0 K/mm3 (0.0-0.4) 06/12/22 07:46 Baso # (Auto) 0.0 K/mm3 (0.0-0.1) 06/12/22 07:46 Add Manual Diff Complete 06/12/22 07:46 Seg Neutrophils % 71.7 % (40.0-70.0) H 06/12/22 07:46 Seg Neutrophils # 3.6 K/mm3 (1.8-7.7) 06/12/22 07:46 Sodium 142 mmol/L (137-145) 06/14/22 05:21 Potassium 3.3 mmol/L (3.6-5.0) L 06/14/22 05:21 Chloride 107.7 mmol/L (98-107) H 06/14/22 05:21 Carbon Dioxide 22 mmol/L (22-30) 06/14/22 05:21 Anion Gap 16 mmol/L 06/14/22 05:21 BUN 3 mg/dL (7-17) L 06/14/22 05:21 Creatinine 0.4 mg/dL (0.6-1.2) L 06/14/22 05:21 Estimated GFR > 60 ml/min 06/14/22 05:21 BUN/Creatinine Ratio 8 % 06/14/22 05:21 Glucose 139 mg/dL (65-100) H 06/14/22 05:21 POC Glucose 118 mg/dL (70-105) H 06/10/22 22:05 Calcium 8.7 mg/dL (8.4-10.2) 06/14/22 05:21 Phosphorus 2.50 mg/dL (2.5-4.5) 06/14/22 05:21 Magnesium 1.90 mg/dL (1.7-2.3) 06/14/22 05:21 Total Bilirubin 0.90 mg/dL (0.1-1.2) 06/14/22 05:21 AST 14 units/L (5-40) 06/14/22 05:21 ALT 6 units/L (7-56) L 06/14/22 05:21 Alkaline Phosphatase 38 units/L (35-129) 06/14/22 05:21 Total Protein 5.7 g/dL (6.3-8.2) L D 06/14/22 05:21 Albumin 3.7 g/dL (3.9-5) L 06/14/22 05:21 Albumin/Globulin Ratio 1.9 % 06/14/22 05:21 Triglycerides 137 mg/dL (2-149) 06/13/22 11:25 Cholesterol 174 mg/dL (50-199) 06/13/22 11:25 LDL Cholesterol Direct 81 mg/dL (50-130) 06/13/22 11:25 HDL Cholesterol 66 mg/dL (40-59) H 06/13/22 11:25 Cholesterol/HDL Ratio 2.63 % 06/13/22 11:25 Lipase 35 units/L (13-60) 06/09/22 17:23 Urine Color Colorless (Yellow) 06/09/22 19:46 Urine Turbidity Clear (Clear) 06/09/22 19:46 Specific Ward (Man) 1.000 (1.003-1.030) L 06/09/22 19:46 Ur Protein (Man) Negative mg/dL (Negative) 06/09/22 19:46 Ur Ketones (Man) Negative (Negative) 06/09/22 19:46 Ur Nitrite (Man) Negative (Negative) 06/09/22 19:46 Urine Bilirubin (Man) Negative (Negative) 06/09/22 19:46 Leukocyte Esterase (Man) Negative (Negative) 06/09/22 19:46 Urine WBC (Auto) 1.0 /HPF (0.0-6.0) 06/09/22 19:46 Urine RBC (Auto) < 1.0 /HPF (0.0-6.0) 06/09/22 19:46 U Epithel Cells (Auto) 2.0 /HPF (0-13.0) 06/09/22 19:46 Urine RBC (Manual) Negative (Negative) 06/09/22 19:46 Pace/IV: Voiding Method Bedside Commode Active Medications - Current Medications Current Medications: Generic Name Dose Route Start Last Admin Trade Name Freq PRN Reason Stop Dose Admin Acetaminophen 650 mg 06/09/22 22:09 Acetaminophen 325 Mg Tab PO Q4H PRN Pain MILD(1-3)/Fever >100.5/TRIVEDI Dextrose 50 ml 06/13/22 09:00 Dextrose 50% In Water (25gm) 50 Ml Syringe IV Q4H PRN Hypoglycemia Protocol Hydralazine HCl 10 mg 06/10/22 10:00 06/14/22 05:55 Hydralazine 20 Mg/1 Ml Inj IV 10 mg Q4HR PRN Administration Blood Pressure Dextrose/Sodium Chloride 1,000 mls @ 100 mls/hr 06/13/22 08:00 06/14/22 01:14 D5/0.45ns IV 100 mls/hr DIRECT RUEL Administration Magnesium Hydroxide 30 ml 06/09/22 22:09 Magnesium Hydroxide (Mom) Oral Liqd Udc PO Q4H PRN Constipation Morphine Sulfate 2 mg 06/09/22 22:09 06/11/22 01:53 Morphine 2 Mg/1 Ml Inj IV 2 mg Q4H PRN Administration Pain, Moderate (4-6) Morphine Sulfate 4 mg 06/09/22 22:09 Morphine 4 Mg/1 Ml Inj IV Q4H PRN Pain , Severe (7-10) Ondansetron HCl 4 mg 06/09/22 22:09 Ondansetron 4 Mg/2 Ml Inj IV Q8H PRN Nausea And Vomiting Sodium Chloride 10 ml 06/10/22 10:00 06/13/22 22:09 Sodium Chloride 0.9% 10 Ml Flush Syringe IV 10 ml BID RUEL Administration Sodium Chloride 10 ml 06/09/22 22:09 Sodium Chloride 0.9% 10 Ml Flush Syringe IV PRN PRN LINE FLUSH
--- NOTE | 2022-06-14 10:04 | Progress Note ---
Assessment and Plan 76-year-old -[place] female with significant history of diverticulitis, hysterectomy and appendectomy in the past presenting to the emergency room 06/09/22 complaining of sudden onset of abdominal pain. Patient notes that after the upper GI Gastrografin study she had a bowel movement. She is still passing gas she does not have any further abdominal pain. She will have the NG tube removed and started full liquid diet at this time. She will likely be discharged tomorrow on full liquid diet. She has been given instructions to advance her self to a soft diet 3 to 4 days after discharge. She has a scheduled colonoscopy for July [address] Donnelly as an outpatient. She will continue with plans for this. I will follow-up the patient as an outpatient in 1 to 2 weeks and also after her colonoscopy. Subjective Date of service: 06/14/22 Patient Reports: Positive: no new complaints, feels better, flatus, bowel movement Narrative: Patient notes that after the upper GI Gastrografin study she had a bowel movement. She is still passing gas she does not have any further abdominal pain. She will have the NG tube removed and started full liquid diet at this time. She will likely be discharged tomorrow on full liquid diet. She has been given instructions to advance her self to a soft diet 3 to 4 days after discharge. She has a scheduled colonoscopy for July [address] Donnelly as an outpatient. She will continue with plans for this. I will follow-up the patient as an outpatient in 1 to 2 weeks and also after her colonoscopy. Objective Vital Signs - 12hr 06/13/22 06/13/22 06/14/22 22:11 23:00 05:52 Temperature 98.9 F 98.8 F Pulse Rate 72 64 Respiratory 18 18 Rate Blood Pressure Blood Pressure 164/74 [Left] Blood Pressure 161/73 [Right] O2 Sat by Pulse 98 98 98 Oximetry 06/14/22 05:55 Temperature Pulse Rate 64 Respiratory Rate Blood Pressure 161/73 Blood Pressure [Left] Blood Pressure [Right] O2 Sat by Pulse Oximetry - Labs 06/12/22 07:46 06/14/22 05:21 Diabetes panel 06/13/22 06/14/22 Range/Units 11:25 05:21 Sodium 142 (137-145) mmol/L Potassium 3.3 L (3.6-5.0) mmol/L Chloride 107.7 H (98-107) mmol/L Carbon Dioxide 22 (22-30) mmol/L BUN 3 L (7-17) mg/dL Creatinine 0.4 L (0.6-1.2) mg/dL Glucose 139 H (65-100) mg/dL Calcium 8.7 (8.4-10.2) mg/dL AST 14 (5-40) units/L ALT 6 L (7-56) units/L Alkaline Phosphatase 38 (35-129) units/L Total Protein 5.7 L D (6.3-8.2) g/dL Albumin 3.7 L (3.9-5) g/dL Triglycerides 137 (2-149) mg/dL HDL Cholesterol 66 H (40-59) mg/dL Calcium panel 06/14/22 Range/Units 05:21 Calcium 8.7 (8.4-10.2) mg/dL Phosphorus 2.50 (2.5-4.5) mg/dL Albumin 3.7 L (3.9-5) g/dL Pituitary panel 06/14/22 Range/Units 05:21 Sodium 142 (137-145) mmol/L Potassium 3.3 L (3.6-5.0) mmol/L Chloride 107.7 H (98-107) mmol/L Carbon Dioxide 22 (22-30) mmol/L BUN 3 L (7-17) mg/dL Creatinine 0.4 L (0.6-1.2) mg/dL Glucose 139 H (65-100) mg/dL Calcium 8.7 (8.4-10.2) mg/dL Adrenal panel 06/14/22 Range/Units 05:21 Sodium 142 (137-145) mmol/L Potassium 3.3 L (3.6-5.0) mmol/L Chloride 107.7 H (98-107) mmol/L Carbon Dioxide 22 (22-30) mmol/L BUN 3 L (7-17) mg/dL Creatinine 0.4 L (0.6-1.2) mg/dL Glucose 139 H (65-100) mg/dL Calcium 8.7 (8.4-10.2) mg/dL Total Bilirubin 0.90 (0.1-1.2) mg/dL AST 14 (5-40) units/L ALT 6 L (7-56) units/L Alkaline Phosphatase 38 (35-129) units/L Total Protein 5.7 L D (6.3-8.2) g/dL Albumin 3.7 L (3.9-5) g/dL
[2022-06-15] MEDS ORDERED: MAGNESIUM SULFATE 2 GM/50 ML BAG IV ONE ×2 (07:32→11:00)
[2022-06-15] MEDS: POTASSIUM CHLORIDE ER 20 MEQ TAB PO SCH ×2 (10:11→16:02)
[2022-06-15] MEDS: D5W/0.45% NACL 1,000 ML IV SCH (10:15)
--- NOTE | 2022-06-15 11:00 | Discharge Summary ---
Providers - Providers Date of Admission: 06/09/22 22:09 Date of discharge: 06/15/22 Attending physician: FRANKLIN DALE 06/09/22 21:47 Consult to Physician [CONS] Urgent Comment: Consulting Provider: YORDAN BLAIR Physician Instructions: Reason For Exam: sbo Primary care physician: MONIKA DUMONT Hospitalization Condition: Stable Hospital course: --Partial small bowel obstruction; Continue n.p.o. 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 status Change IV fluids to D5 half-normal Closely monitor blood sugars IV D50 as needed --Hyperlipidemia; Will check fasting lipid panel, patient n.p.o. today --Tobacco dependence; Smoking cessation counseling, nicotine patch as needed Partial small bowel obstruction resolved Hyponatremia resolved Hypokalemia corrected Hypomagnesemia Hypoglycemia resolved Ongoing tobacco use smoking cessation Disposition: HOME / SELF CARE / HOMELESS Final Discharge Diagnosis (Prints w/discharge instructions): Partial small bowel obstruction resolved. Hyponatremia resolved. Hypokalemia corrected. Hypomagnesemia. Hypoglycemia resolved. Ongoing tobacco use/ smoking cessation counseling done Time spent for discharge: 35 min Exam - Constitutional Vitals: Temp Pulse Resp BP Pulse Ox 98.6 F 81 18 136/67 95 06/15/22 05:37 06/15/22 05:37 06/15/22 05:37 06/15/22 05:37 06/15/22 05:37 Plan Follow up with: MONIKA DUMONT MD [Primary Care Provider] - 7 Days
[2022-06-15 17:53] VITALS: BP 143/69
== END 2022-06-15 18:10 | disposition home or self-care (01) | DRG 389 ==
LOC: ED 16:37 → 3A 22:09
PROVIDERS: ADMIT Internal Medicine Geriatric Medicine; ATTEND Internal Medicine
PROC: 0D9670Z Drainage of Stomach with Drainage Device, Via Natural or Artificial Opening (ICD-10-PCS; principal; 2022-06-09)
DX: K56.600 Partial intestinal obstruction, unspecified as to cause (principal); E87.0 Hyperosmolality and hypernatremia; E78.5 Hyperlipidemia, unspecified; I10 Essential (primary) hypertension; F17.200 Nicotine dependence, unspecified, uncomplicated; E16.2 Hypoglycemia, unspecified; E87.6 Hypokalemia; E83.42 Hypomagnesemia; Z71.6 Tobacco abuse counseling
CPT/HCPCS: 36415; 74018; 74019; 74177; 74240; 80048; 80053; 80061; 81001; 82962; 83690; 83735; 84100; 84132; 85025; 99285; G0378; J7070; J0360; J2270; J2405; J3475; J7030; Q9967